=== PATIENT | male | born 1950 | race Hispanic/Latino ===

== ENCOUNTER 2019-10-19 22:09 | Inpatient (IN) | payer MEDICARE, OTHER ==
[~2019-10-19] VITALS: Ht 165.1 cm; Wt 71.7 kg
[~2019-10-19 22:09] MED LIST: ETOMIDATE 2 MG/ML 10 ML VIAL IVP ONE; NOREPINEPHRINE BITARTRATE 1 MG/1 ML ML IV ONE; ROCURONIUM BROMIDE 10MG/1ML 5ML VL IV ONE; SODIUM BICARB 8.4% 50ML SYRINGE IVP ONE
[2019-10-19] MEDS ORDERED: SODIUM CHLORIDE 0.9% 1000ML 1,000 ML IV ONE (22:40)
[2019-10-19 22:45] LABS: BASOPHILS % (AUTO) 0.5 % (0.0-5.0); EOSINOPHILS % (AUTO) 1.6 % (0.0-8.0); HEMATOCRIT 35.4 % (42-54); LYMPHOCYTES % (AUTO) 13.3 % (21.0-51.0); MEAN CORPUSCULAR HEMOGLOBIN 29.1 pg (27.0-33.0); MEAN CORPUSCULAR HGB CONC 32.5 g/dL (32.0-36.0); MEAN CORPUSCULAR VOLUME 89.6 fL (79-99); MONOCYTES % (AUTO) 7.2 % (3.0-13.0); NEUTROPHILS % (AUTO) 76.9 % (40.0-77.0); PLATELET COUNT (AUTO) 272 K/uL (130-400); RED BLOOD CELL COUNT(AUTO) 3.95 MIL/uL (4.50-6.20); WHITE BLOOD COUNT (AUTO) 6.3 K/uL (4.8-10.8)
[2019-10-19 22:59] LABS: CARBON DIOXIDE 23 mmol/L (21-32); CHLORIDE 99 mmol/L (101-111); CREATININE 2.1 mg/dL (0.5-1.5); GLOMERULAR FILTR. RATE CALC 33 mL/min (>60); GLUCOSE,RANDOM 130 mg/dL (70-105); POTASSIUM 4.6 mmol/L (3.5-5.1); SODIUM SERUM 135 mmol/L (136-145); UREA NITROGEN, BLOOD 39 mg/dL (7-18)
[2019-10-19 23:04] LABS: ALANINE AMINOTRANSFERASE 49 U/L (12-78); ALBUMIN 2.6 g/dL (3.5-5.0); ASPARTATE AMINOTRANSFERASE 34 U/L (10-37); BILIRUBIN,TOTAL 0.5 mg/dL (0.2-1.0); CREATINE KINASE, TOTAL 47 U/L (21-232); TOTAL PROTEIN, SERUM 7.4 g/dL (6.0-8.3)
[2019-10-19 23:14] LABS: AMMONIA < 3 umol/L (11-32)
[2019-10-19 23:38] LABS: APPEARANCE,URINE Clear (CLEAR); BILIRUBIN,URINE Negative (NEGATIVE); COLOR,URINE Yellow (YELLOW); GLUCOSE, URINE (UA) Negative (NEGATIVE); KETONES,URINE Negative (NEGATIVE); LEUKOCYTE ESTERASE ,URINE Negative (NEGATIVE); NITRATE,URINE Negative (NEGATIVE); OCCULT BLOOD,URINE Negative (NEGATIVE); PH,URINE 5.5 (5.0-8.0); PROTEIN,URINE POS 2+ mg/dL (NEGATIVE)
[2019-10-19 23:46] LABS: AMPHET/METH SCREEN,URINE NEGATIVE (NEGATIVE); BARBITURATE SCREEN, URINE NEGATIVE (NEGATIVE); BENZODIAZEPINES SCREEN,URINE NEGATIVE (NEGATIVE); CANNABINOID SCREEN,URINE NEGATIVE (NEGATIVE); COCAINE SCREEN,URINE NEGATIVE (NEGATIVE); OPIATE SCREEN,URINE NEGATIVE (NEGATIVE); PHENCYCLIDINE SCREEN,URINE NEGATIVE (NEGATIVE)
[2019-10-19 23:48] LABS: INR 0.97 (0.85-1.15); PARTIAL THROMBOPLASTIN TIME 33.3 SEC (26.3-35.5); PROTHROMBIN TIME 10.5 SEC (9.6-11.6)
[2019-10-19 23:57] LABS: BACTERIA,URINE None Seen /HPF (None Seen); RBC,URINE 0-1 /HPF (0-1); SQUAMOUS EPITHELIAL CELL,UR Rare /HPF (0-2); WBC,URINE 0-1 /HPF (0-1)
[2019-10-20] VITALS (17 sets, daily range): BP systolic 120–151; BP diastolic 69–89
[2019-10-20] MEDS ORDERED: SODIUM CHLORIDE 0.9% 1000ML 1,000 ML IV SCH (00:05)
[2019-10-20] MEDS ORDERED: DIPHENHYDRAMINE HCL 25 MG CAPSULE PO PRN (00:15)
[2019-10-20] MEDS ORDERED: NITROGLYCERIN 0.4 MG SL TAB SL PRN (00:15)
[2019-10-20 03:45] LABS: HEMATOCRIT 34.5 % (42-54); MEAN CORPUSCULAR HGB CONC 32.8 g/dL (32.0-36.0); MEAN CORPUSCULAR VOLUME 88.7 fL (79-99); PLATELET COUNT (AUTO) 273 K/uL (130-400); RED BLOOD CELL COUNT(AUTO) 3.89 MIL/uL (4.50-6.20); WHITE BLOOD COUNT (AUTO) 5.7 K/uL (4.8-10.8)
[2019-10-20 03:54] LABS: INR 0.97 (0.85-1.15); PROTHROMBIN TIME 10.5 SEC (9.6-11.6)
[2019-10-20 04:01] LABS: ALANINE AMINOTRANSFERASE 45 U/L (12-78); ALBUMIN 2.5 g/dL (3.5-5.0); ASPARTATE AMINOTRANSFERASE 28 U/L (10-37); BILIRUBIN,TOTAL 0.5 mg/dL (0.2-1.0); CARBON DIOXIDE 24 mmol/L (21-32); CHLORIDE 104 mmol/L (101-111); CREATINE KINASE, TOTAL 41 U/L (21-232); CREATININE 1.9 mg/dL (0.5-1.5); GLOMERULAR FILTR. RATE CALC 37 mL/min (>60); GLUCOSE,RANDOM 104 mg/dL (70-105); MYOGLOBIN 65 ng/mL (10-92); POTASSIUM 3.9 mmol/L (3.5-5.1); SODIUM SERUM 140 mmol/L (136-145); TOTAL PROTEIN, SERUM 7.2 g/dL (6.0-8.3); TROPONIN I < 0.04 ng/mL (0.00-0.06); UREA NITROGEN, BLOOD 28 mg/dL (7-18)
[2019-10-20 04:16] LABS: BAND NEUTROPHILS % (MANUAL) 2 % (0-2); LYMPHOCYTES % (MANUAL) 11 % (22-44); MAN.DIFF COMMENT-IMPRESSION MANUAL DIFFERENTIAL; MONOCYTES % (MANUAL) 8 % (2-9); PLATELET MORPHOLOGY COMMENT ADEQUATE; REACTIVE LYMPHOCYTES 1 % (0-0); SEGMENTED NEUTROPHILS % 78 % (40-70)
[2019-10-20] MEDS: FAMOTIDINE/PF 20 MG/2 ML VIAL IV SCH (09:00)
[2019-10-20] MEDS ORDERED: GADODIAMIDE 10 MMOL/20 ML VIAL IV ONE (09:56)
[2019-10-20] MEDS ORDERED: LEVETIRACETAM 500 MG TABLET PO ONE (12:23)
[2019-10-20] MEDS ORDERED: LACTATED RINGERS 1000ML 1,000 ML IV ONE (12:23)
--- NOTE | 2019-10-20 13:15 | NUR ---
PT ARRIVES FROM ER. HE HAS EXPRESSIVE APHASIA-HE CAN SPEAK 1-2 WORDS CLEARLY IN BRAZILIAN AND WITH CUEING. HE CANNOT SAY HIS NAME ,HE DID TELL ME HIS LAST NAME. HE CANNOT TELL ME HIS BIRTHDAY. HAS NO LIMB WEAKNESS/DRIFT. I NOTED SOME ATAXIA TO HIS RT ARM AND HAND. NO FACIAL DROOP OR DROOLING. PUPILS EQUAL AND REACTIVE. I RECIEVED REPORT FROM ER STAFF THAT DR LAND HAS BEEN NOTIFIED WITH MRI RESULTS. I REVIEWED DR LAND NOTES AND ORDERS. THANK YOU
[2019-10-20] MEDS ORDERED: DEXAMETHASONE SOD PHOSPHATE 4 MG/ML 1ML VIAL ONE (13:47)
[2019-10-20] MEDS ORDERED: SIMV40TA59 PO (13:51)
[2019-10-20] MEDS ORDERED: PANT40TA PO (13:51)
[2019-10-20] MEDS ORDERED: BICA50TA49 PO (13:51)
[2019-10-20] MEDS ORDERED: SUCR1TAB28 PO (13:51)
[2019-10-20] MEDS: DEXAMETHASONE SOD PHOSPHATE 4 MG/ML 1ML VIAL IVP SCH ×2 (14:00→20:03)
[2019-10-20] MEDS: LACTATED RINGERS 1000ML 1,000 ML IV SCH ×2 (14:39→20:01)
--- NOTE | 2019-10-20 16:17 | NUR ---
NO ACUTE CHANGES. WAKES EASILY AND FOLLOWS COMMANDS. DAUGHTER AT BEDSIDE. INFORMED OF PLAN OF CARE.
--- NOTE | 2019-10-20 17:15 | NUR ---
DR LOVE MADE ROUNDS- EXAMINED PT. INFORMED OF DR LAND NOTES AND RECOMMENDATIONS. NO NEW ORDERS
--- NOTE | 2019-10-20 17:21 | NUR ---
cm note met with patient but unable to speak, spouse present in room and states resides at home with spouse, independent with adls and ambulation until last few weeks got weaker and c/o BOLANOS. pt and spouse were visiting family in this area. they [place] in [facility] [place] [facility]. and pt became ill. [facility] dc plan is back to home when stable. open to rehab as necessary, but prefer to go back to their hometown. states they spoke to md regarding transfer. but md felt not stable for transfer at this time. states curently staying at local hotel. provided spouse with information on local hotels that are availalbe weekly. [facility] will followup. Addendum: 10/20/19 at 1726 by DOM MESSINA Amended: Links added.
--- NOTE | 2019-10-20 19:16 | NUR ---
HAND OFF REPORT GIVEN TO SANDRA JOHN
[2019-10-21] VITALS (24 sets, daily range): BP systolic 120–155; BP diastolic 67–96
[2019-10-21] MEDS: DEXAMETHASONE SOD PHOSPHATE 4 MG/ML 1ML VIAL IVP SCH ×4 (02:22→21:00)
[2019-10-21 03:54] LABS: BASOPHILS % (AUTO) 0.2 % (0.0-5.0); HEMATOCRIT 32.2 % (42-54); LYMPHOCYTES % (AUTO) 8.1 % (21.0-51.0); MEAN CORPUSCULAR HEMOGLOBIN 29.1 pg (27.0-33.0); MEAN CORPUSCULAR HGB CONC 33.2 g/dL (32.0-36.0); MEAN CORPUSCULAR VOLUME 87.5 fL (79-99); MONOCYTES % (AUTO) 3.9 % (3.0-13.0); NEUTROPHILS % (AUTO) 87.5 % (40.0-77.0); PLATELET COUNT (AUTO) 281 K/uL (130-400); RED BLOOD CELL COUNT(AUTO) 3.68 MIL/uL (4.50-6.20); RED CELL DISTRIBUTION WIDTH 11.8 % (11.0-15.5); WHITE BLOOD COUNT (AUTO) 6.2 K/uL (4.8-10.8)
[2019-10-21 04:41] LABS: ALBUMIN 2.2 g/dL (3.5-5.0); BILIRUBIN,TOTAL 0.4 mg/dL (0.2-1.0); CREATININE 1.7 mg/dL (0.5-1.5); POTASSIUM 4.4 mmol/L (3.5-5.1); TOTAL PROTEIN, SERUM 6.8 g/dL (6.0-8.3)
--- NOTE | 2019-10-21 07:10 | NUR ---
REPORT GIVEN TO ALVARO DIAMOND
[2019-10-21] MEDS: LEVETIRACETAM 500 MG TABLET PO SCH (09:28)
[2019-10-21] MEDS: FAMOTIDINE/PF 20 MG/2 ML VIAL IV SCH (09:28)
[2019-10-21] MEDS: LACTATED RINGERS 1000ML 1,000 ML IV SCH (14:50)
[2019-10-22] VITALS (34 sets, daily range): BP systolic 120–158; BP diastolic 71–113
[2019-10-22] MEDS: LACTATED RINGERS 1000ML 1,000 ML IV SCH (01:45)
[2019-10-22] MEDS: DEXAMETHASONE SOD PHOSPHATE 4 MG/ML 1ML VIAL IVP SCH ×4 (01:50→20:18)
[2019-10-22 04:27] LABS: BASOPHILS % (AUTO) 0.1 % (0.0-5.0); LYMPHOCYTES % (AUTO) 5.3 % (21.0-51.0); MEAN CORPUSCULAR HEMOGLOBIN 28.9 pg (27.0-33.0); MEAN CORPUSCULAR HGB CONC 32.9 g/dL (32.0-36.0); MEAN CORPUSCULAR VOLUME 87.9 fL (79-99); MONOCYTES % (AUTO) 4.3 % (3.0-13.0); NEUTROPHILS % (AUTO) 89.8 % (40.0-77.0); PLATELET COUNT (AUTO) 299 K/uL (130-400); RED BLOOD CELL COUNT(AUTO) 3.87 MIL/uL (4.50-6.20); RED CELL DISTRIBUTION WIDTH 11.9 % (11.0-15.5); WHITE BLOOD COUNT (AUTO) 9.1 K/uL (4.8-10.8)
[2019-10-22 04:54] LABS: ALBUMIN 2.2 g/dL (3.5-5.0); BILIRUBIN,TOTAL 0.3 mg/dL (0.2-1.0); CREATININE 1.6 mg/dL (0.5-1.5); POTASSIUM 4.2 mmol/L (3.5-5.1); TOTAL PROTEIN, SERUM 6.7 g/dL (6.0-8.3)
[2019-10-22] MEDS: FAMOTIDINE/PF 20 MG/2 ML VIAL IV SCH (08:51)
[2019-10-22] MEDS: LEVETIRACETAM 500 MG TABLET PO SCH (08:51)
--- NOTE | 2019-10-22 10:00 | NUR ---
DYSPHAGIA EVAL COMPLETED. -S/S OF ASPIRATION. RECOMMEND MECHANICAL SOFT, THIN LIQUIDS; PILLS WHOLE WITH LIQUIDS. Addendum: 10/22/19 at 1207 by NANCY SHIRLEY, [facility] Amended: Links added.
--- NOTE | 2019-10-22 10:15 | NUR ---
COGNITIVE-LINGUISTIC EVAL COMPLETE. Pt WITH MODERATE RECEPTIVE AND SEVERE EXPRESSIVE APHASIA. Pt FOLLOWED 1-STEP COMMANDS WITH 50% ACCURACY. Pt DID NOT REPEAT WORDS OR VERBALIZE DURING THE EVALUATION. Pt DID NOT STATE NAME. Pt RESPONDED TO NAME BY TURNING TO SPEAKER. Pt DID NOT ANSWER YES/NO QUESTIONS. Pt DID NOT COMPLETE CONFRONTATIONAL NAMING. Pt DID NOT IMITATE WORDS. Pt Pt DID NOT IDENTIFY COMMON OBJECTS FROM A FIELD OF TWO. Pt REQUIRED MAX VERBAL AND VISUAL CUES TO FOLLOW COMMANDS AND PARTICIPATE IN ACTIVITIES. COGNITIVE ABILITY AND ARTICULATION TO BE ADDRESSED AT ANOTHER TIME SECONDARY TO UNABLE TO EVALUATE AT THIS TIME TIME DUE TO POOR EXPRESSIVE AND RECEPTIVE LANGUAGE ABILITIES. RECOMMENDATIONS: 1. SKILLED SPEECH THERAPY 3-5XWK TARGETING EXPRESSIVE LANGUAGE SKILLS. LTG#1: Pt WILL INCREASE EXPRESSIVE LANGUAGE SKILLS TO EXPRESS WANTS AND NEEDS WITH MIN ASSISTANCE. LTG#2: Pt WILL INCREASE RECEPTIVE LANGUAGE SKILLS TO PARTICIPATE IN ADLs WITH MIN ASSISTANCE. STG#1: Pt WILL REPEAT COMMON WORDS WITH 70% ACCURACY. STG#2: Pt WILL ANSWER YES/NO QUESTIONS WITH 80% ACCURACY USING GESTURES OR VERBAL OUTPUT. STG#3: Pt WILL FOLLOW 1-STEP COMMANDS WITH 80% ACCURACY INDEPENDENTLY. STG#4: Pt WILL IDENTIFY COMMON OBJECTS FROM A FIELD OF 2 WITH 80% ACCURACY. STG#5: Pt WILL LABEL COMMON OBJECTS WITH 80% ACCURACY WITH 80% ACCURACY. STG#6: SKILLED EDUCATION Pt/FAMILY/STAFF. SPOKEN LANGUAGE EXPRESSION: [id number] Addendum: 10/22/19 at [address] Amended: Links added.
--- NOTE | 2019-10-22 10:45 | NUR ---
DR. LEXIE OWEN AT BEDSIDE AT THIS TIME TO SPEAK TO FAMILY. HE UPDATED THEM ON PATIENT'S CURRENT STATUS AND LAST IMAGING RESULTS. HE REQUESTED THAT [facility] BE CALLED TO EVALUATE PATIENT.
--- NOTE | 2019-10-22 11:00 | NUR ---
DR. ANDRES CAMPOS NOTIFIED VIA TELEPHONE AT THIS TIME ABOUT PATIENT AND CURRENT CONDITION. HE SAID HE WILL BE BY LATER TO SEE AND ASSESS THE PATIENT.
[2019-10-22] MEDS: RANITIDINE HCL 15 MG/1 ML PO SCH (11:12)
--- NOTE | 2019-10-22 12:30 | NUR ---
DR. ANDRES CAMPOS CAME TO SEE AND ASSESS PATIENT AT THIS TIME. PATIENT'S SON AND DAUGHTER AT BEDSIDE. DR. CAMPOS ORDERED CT OF CHEST, ABDOMEN AND PELVIS WITH AND WITHOUT CONTRAST. HE ALSO REQUESTED DR. LAND TO SEE AND EVALUATE PATIENT. HE WAS MADE AWARE THAT DR. LAND HAS MADE AN APPOINTMENT WITH FAMILY AT 2PM.
--- NOTE | 2019-10-22 13:30 | NUR ---
DR. LAND AT BEDSIDE DR. LAND AT BEDSIDE TO SEE PATIENT AND SPEAK WITH FAMILY. PATIENT'S 3 DAUGHTERS AND 1 SON AT BEDSIDE AT THIS TIME. DR. LAND NOTIFIED THEM OF THE SEVERITY OF HIS CASE. HE EXPLAINED IN DETAIL ABOUT THE OPTIONS THE FAMILY HAS FOR THEIR FATHER. FAMILY VERBALIZED UNDERSTANDING OF THE OPTIONS AND STATED THEY WILL BE DISCUSSING IT ALTOGETHER. Addendum: 10/22/19 at 1847 by WANDA AVELAR RN NO FINAL DECISION HAS BEEN MADE BY FAMILY AT THIS TIME.
[2019-10-22] MEDS ORDERED: DIATR MEGLU/DIATRIZOATE SODIUM 30 ML BOTTLE ONE (14:22)
--- NOTE | 2019-10-22 14:50 | NUR ---
CT SCAN PER DR. SAMSON, CHANGE CT SCAN TO WITHOUT CONTRAST, BECAUSE OF CREATINE LEVELS.
--- NOTE | 2019-10-22 14:56 | NUR ---
RD NOTIFICATION - Pt with very poor appetite Pt admitted for subdural hematoma. Brain mass as per EMR, pending neurosurgical consult. Pt with aphasia. Recommend appetite stimulant secondary to Pt oral intake not meeting calculated nutritional needs. Also recommend Ensure TID with meals. RD to continue to monitor. Please notify RD as additional nutrition concerns arise. Thank you. Addendum: 10/22/19 at [address] Amended: Links added.
[2019-10-22] MEDS: ACETAMINOPHEN 325 MG TAB PO PRN ×2 (16:36→20:45)
[2019-10-23] VITALS (33 sets, daily range): BP systolic 127–168; BP diastolic 70–100
[2019-10-23 03:00] LABS: HEMATOCRIT 33.6 % (42-54); LYMPHOCYTES % (AUTO) 7.1 % (21.0-51.0); MEAN CORPUSCULAR VOLUME 87.7 fL (79-99); MONOCYTES % (AUTO) 4.8 % (3.0-13.0); NEUTROPHILS % (AUTO) 87.7 % (40.0-77.0); PLATELET COUNT (AUTO) 308 K/uL (130-400); RED BLOOD CELL COUNT(AUTO) 3.83 MIL/uL (4.50-6.20); WHITE BLOOD COUNT (AUTO) 7.6 K/uL (4.8-10.8)
[2019-10-23 03:19] LABS: ALBUMIN 2.2 g/dL (3.5-5.0); BILIRUBIN,TOTAL 0.3 mg/dL (0.2-1.0); CREATININE 1.8 mg/dL (0.5-1.5); POTASSIUM 4.3 mmol/L (3.5-5.1); TOTAL PROTEIN, SERUM 6.5 g/dL (6.0-8.3)
[2019-10-23] MEDS: DEXAMETHASONE SOD PHOSPHATE 4 MG/ML 1ML VIAL IVP SCH ×4 (05:13→20:23)
[2019-10-23] MEDS: RANITIDINE HCL 15 MG/1 ML PO SCH (08:43)
[2019-10-23] MEDS: LEVETIRACETAM 500 MG TABLET PO SCH (08:43)
--- NOTE | 2019-10-23 11:30 | NUR ---
SPEECH THERAPY COMPLETED. S: Pt IN BED AT THE TIME OF THE SESSION. SON AT BEDSIDE. Pt COOPERATIVE, SMILING (NON-VERBAL). O: Pt CURRENTLY TARGETING RECEPTIVE AND EXPRESSIVE LANGUAGE SKILLS. RESULTS ARE FOLLOWS: STG#1: Pt WILL REPEAT COMMON WORDS WITH 70% ACCURACY: 0% ACCURACY STG#2: Pt WILL ANSWER YES/NO QUESTIONS WITH 80% ACCURACY USING GESTURES OR VERBAL OUTPUT: GESTURE 20% (HAND SQUEEZING), VERBAL: 0% STG#3: Pt WILL FOLLOW 1-STEP COMMANDS WITH 80% ACCURACY INDEPENDENTLY: 60% ACCURACY WITH MAX CUES STG#4: Pt WILL IDENTIFY COMMON OBJECTS FROM A FIELD OF 2 WITH 80% ACCURACY: 50% ACCURACY WITH TANGIBLE OBJECTS STG#5: Pt WILL LABEL COMMON OBJECTS WITH 80% ACCURACY WITH 80% ACCURACY: 0% ACCURACY STG#6: SKILLED EDUCATION Pt/FAMILY/STAFF: COMPLETED. A: Pt PRESENTS WITH ATAXIA DURING 1-STEP COMMANDS OF ORAL MOVEMENTS AND FINE MOTOR SKILLS. Pt ABLE TO IDENTIFY COMMON OBJECTS. 1 ATTEMPT FOR VERBAL OUTPUT NOTED WITH NO TRUE WORDS EXPRESSED. Pt WITH IMPROVED RESPONSE TO TANGIBLE OBJECTS VS PICTURES. Pt USING HAND SQUEEZING TO ANSWER YES/NO QUESTIONS. P: RECOMMEND CONTINUED SKILLED SPEECH THERAPY TARGETING RECEPTIVE AND EXPRESSIVE LANGUAGE 3-5XWK WEEK. NUCLEAR STATION OPERATOR WILL CONTINUE TO FOLLOW Pt. NUCLEAR STATION OPERATOR COORDINATED CARE WITH NURSE WANDA. Addendum: 10/23/19 at 1351 by BRENNAN KILPATRICK Amended: Links added.
[2019-10-23] MEDS ORDERED: LEVE-43 PO (13:14)
[2019-10-23] MEDS ORDERED: DEXA2TAB PO (13:14)
--- NOTE | 2019-10-23 14:15 | NUR ---
RECTAL BLEED EDMUND WALKER NOTIFIED OF PATIENT'S RECURRING BLOODY STOOLS. SHE WAS INFORMED OF HGB AND HCT LEVELS OF PREVIOUS DAYS AND SAID IT WOULD BE FINE TO CONTINUE WITH DISCHARGE, SO LONG FAMILY IS AWARE TO FIND GI DOCTOR.
--- NOTE | 2019-10-23 15:45 | NUR ---
CANCEL DISCHARGE DR. Whelan AND EDMUND TOBACCO PREVENTION HEALTH EDUCATOR NOTIFIED THAT PATIENT'S SPOUSE IS NOW REQUESTING TO PROCEED WITH CARE HERE INSTEAD OF BEING DISCHARGED TO CONTINUE CARE IN [place]. DR. Whelan AND EDMUND TOBACCO PREVENTION HEALTH EDUCATOR AT BEDSIDE TO SPEAK WITH PATIENT'S AND SON, SHORTY. THEY AGREED TO STAY HERE AND PROCEED WITH CARE TO PREVENT DELAY OF CARE. DR. Whelan REQUESTED THAT DR. LAND BE NOTIFIED OF THE RECONSULT. RUPAL RN (DR. LAND'S NURSE), WAS NOTIFIED AT 1600 OF THE SITUATION. PENDING RESPONSE. PATIENT WILL REMAIN IN ICU AT THIS TIME. DISCHARGE CANCELLED.
--- NOTE | 2019-10-23 16:40 | NUR ---
GI CONSULT SPOKE TO LAWRENCE FORM DR. MAN OFFICE AT THIS TIME. SHE STATED SHE WILL LET DR. MAN KNOW ABOUT CONSULTATION.
--- NOTE | 2019-10-23 17:45 | NUR ---
GI CONSULT SPOKE TO DR. MAN AT THIS TIME. HE STATED TO CONTINUE TO MONITOR PATIENT'S BOWEL MOVEMENTS AT THIS TIME. SINCE PATIENT IS STABLE, HE RECOMMENDS TO CONTINUE WITH PLAN FOR CRANIOTOMY. HE STATES IF PATIENT BECOMES UNSTABLE BECAUSE OF GI BLEED, TO NOTIFY HIM IMMEDIATELY. OTHERWISE, CONTINUE WITH PLAN FOR CRANIOTOMY.
--- NOTE | 2019-10-23 18:15 | NUR ---
MEETING WITH DR. LAND TOMORROW. FAMILY WAS INFORMED TO BE HERE AT 10 AM TOMORROW MORNING FOR MEETING WITH DR. LAND.
[2019-10-24] VITALS (24 sets, daily range): BP systolic 119–175; BP diastolic 45–101
[2019-10-24] MEDS: DEXAMETHASONE SOD PHOSPHATE 4 MG/ML 1ML VIAL IVP SCH ×4 (02:44→21:18)
[2019-10-24] MEDS: LEVETIRACETAM 500 MG TABLET PO SCH (08:07)
[2019-10-24] MEDS: RANITIDINE HCL 15 MG/1 ML PO SCH (08:07)
--- NOTE | 2019-10-24 10:45 | NUR ---
DR. LAND AT BEDSIDE DR. LAND AT BEDSIDE TO SPEAK WITH FAMILY ABOUT PLAN OF SURGERY. PATIENT'S , SON, AND TWO DAUGHTERS ARE AT BEDSIDE. ALL QUESTIONS FROM FAMILY WERE DISCUSSED AND EXPLAINED BY DR. LAND. FAMILY VERBALIZED UNDERSTANDING OF RISKS OF SURGERY. SURGERY PLANNED FOR TOMORROW MORNING. PENDING TO SCHEDULE WITH OR.
[2019-10-24] MEDS ORDERED: CEFAZOLIN SODIUM 1 GM VIAL IVP PRN (11:30)
--- NOTE | 2019-10-24 11:32 | NUR ---
PA PLAN VISITED WITH PATIENT AND FAMILY. FAMILY HAD BEEN TALKING ABOUT TAKING PATIENT UP [place]. SPOKE TO DR. SAMSON SAID OKAY TO PA PATIENT. HE HAD BEEN HAVING ISSUES SINCE JUN. SPOKE TO CHANCE WALKER SAID OKAY TO PA. WENT TO TALK TO FAMILY. SAID THEY WERE TOLD BY NURSING STAFF THAT PATIENT HAD BEEN ACCEPTED TO [facility]. NO ORDER FOR TRANSFER HAD BEEN GIVEN ASKED WHO SAID A NURSE DID NOT KNOW WHO. EXPLAINED THAT NO PATIENT WAS BEING DISCHARGED HOME TO FOLLOW UP WITH [facility] IN [place] SINCE THEY HAD SAID THEY WANTED PATIENT TO GO HOME. AT THIS POINT THEY ASKED IF EMS HAD BEEN SET UP. EXPLAINED THAT MD HAD CLEARED PATIENT TO TRAVEL VIA PRIVATE VEHICLE. THEY FELT UNSAFE BECAUSE PATIENT COULD HAVE A BREAKTHROUGH SEIZURE. EXPLAINED THAT INSURANCE WOULD NOT PAY FOR EMS TO [place]. SAID TO TRY UNDER HOSPICE. AFTER 3 HOURS BEING MOVED AROUND IN [facility] SPOKE TO 8 DIFFERENT PEOPLE INCLUDING EN WHO HAD BEEN ASSIGNED TO THE CASE. [facility] CALLED BACK SAID THAT INSURANCE WILL NOT COVER. PRIVATE [employer] IS [phone] DOLLARS. FAMILY CHANGED MIND NOW WANT THE SURGERY. LET DR. LOVE KNOW. NURSE AWARE. Addendum: 10/24/19 at 1141 by YANA CHU RN CM Amended: Links added.
[2019-10-24] MEDS: ACETAMINOPHEN 325 MG TAB PO PRN (12:45)
[2019-10-24] MEDS: ONDANSETRON HCL 4 MG/2 ML VIAL IV PRN (12:52)
[2019-10-24] MEDS ORDERED: ATOR40TA69 PO (13:15)
[2019-10-24] MEDS ORDERED: AMLO-258 PO (13:15)
[2019-10-24] MEDS ORDERED: TAMS-1 PO (13:15)
--- NOTE | 2019-10-24 15:05 | NUR ---
HOME MEDS EDMUND WLAKER, NOTIFIED THAT PATIENT'S HOME MEDS HAVE BEEN ENTERED AND ARE PENDING TO BE RESTARTED. ALSO, ORDER FOR STAT CBC AND CMP OBTAINED.
[2019-10-24 16:56] LABS: HEMATOCRIT 37.3 % (42-54); MEAN CORPUSCULAR HEMOGLOBIN 28.6 pg (27.0-33.0); MEAN CORPUSCULAR HGB CONC 32.7 g/dL (32.0-36.0); MEAN CORPUSCULAR VOLUME 87.4 fL (79-99); PLATELET COUNT (AUTO) 357 K/uL (130-400); RED BLOOD CELL COUNT(AUTO) 4.27 MIL/uL (4.50-6.20); RED CELL DISTRIBUTION WIDTH 11.9 % (11.0-15.5); WHITE BLOOD COUNT (AUTO) 7.6 K/uL (4.8-10.8)
[2019-10-24] MEDS: SUCRALFATE 1 GM TABLET PO SCH ×2 (17:03→21:18)
[2019-10-24 17:12] LABS: CREATININE 1.6 mg/dL (0.5-1.5); POTASSIUM 4.3 mmol/L (3.5-5.1)
[2019-10-24] MEDS: ATORVASTATIN CALCIUM 40 MG TABLET PO SCH (21:18)
[2019-10-25] VITALS (43 sets, daily range): BP systolic 105–192; BP diastolic 56–116
[2019-10-25] MEDS: DEXAMETHASONE SOD PHOSPHATE 4 MG/ML 1ML VIAL IVP SCH ×4 (02:05→22:51)
[2019-10-25 03:54] LABS: BASOPHILS % (AUTO) 0.1 % (0.0-5.0); HEMATOCRIT 33.9 % (42-54); MEAN CORPUSCULAR HEMOGLOBIN 29.3 pg (27.0-33.0); MEAN CORPUSCULAR HGB CONC 33.6 g/dL (32.0-36.0); MEAN CORPUSCULAR VOLUME 87.1 fL (79-99); MONOCYTES % (AUTO) 6.6 % (3.0-13.0); NEUTROPHILS % (AUTO) 83.4 % (40.0-77.0); PLATELET COUNT (AUTO) 328 K/uL (130-400); RED BLOOD CELL COUNT(AUTO) 3.89 MIL/uL (4.50-6.20); RED CELL DISTRIBUTION WIDTH 11.9 % (11.0-15.5); WHITE BLOOD COUNT (AUTO) 7.5 K/uL (4.8-10.8)
[2019-10-25 04:05] LABS: INR 1.03 (0.85-1.15); PARTIAL THROMBOPLASTIN TIME 27.6 SEC (26.3-35.5); PROTHROMBIN TIME 11.1 SEC (9.6-11.6)
[2019-10-25 04:15] LABS: ALBUMIN 2.1 g/dL (3.5-5.0); BILIRUBIN,TOTAL 0.3 mg/dL (0.2-1.0); CREATININE 1.8 mg/dL (0.5-1.5); MAGNESIUM 2.1 mg/dL (1.80-2.40); POTASSIUM 4.3 mmol/L (3.5-5.1); TOTAL PROTEIN, SERUM 6.4 g/dL (6.0-8.3)
--- NOTE | 2019-10-25 07:45 | NUR ---
pt is npo, ready for surgery, ekg done, cxr ordered by dr west will be done in surgery holding as per SURGERY staff
[2019-10-25] MEDS ORDERED: LACTATED RINGERS 1000ML 1,000 ML IV ONE (07:58)
[2019-10-25] MEDS ORDERED: ROCURONIUM 10MG/1ML SYR 10 MG/ML ML ONE ×2 (08:01→09:51)
[2019-10-25] MEDS ORDERED: PROPOFOL 10 MG/ML 20ML VIAL IV ONE (08:01)
[2019-10-25] MEDS ORDERED: LIDOCAINE PF 2% 5ML ABBOJECT ONE (08:01)
[2019-10-25] MEDS ORDERED: MIDAZOLAM HCL 1 MG/ML 2ML VIAL ONE (08:01)
[2019-10-25] MEDS ORDERED: FENTANYL CITRATE PF 50 MCG/1 ML 5ML AMP IV ONE (08:04)
[2019-10-25] MEDS ORDERED: THROMBIN-JMI 20000 UNIT KIT TP ONE (08:25)
[2019-10-25] MEDS ORDERED: BUPIVACAINE/EPI/PF 0.25% 30ML VIAL IJ ONE (08:25)
[2019-10-25] MEDS ORDERED: DEXAMETHASONE SOD PHOSPHATE 10MG/ML 1ML VIAL ONE (08:29)
[2019-10-25] MEDS ORDERED: ONDANSETRON HCL 4 MG/2 ML VIAL ONE (08:29)
[2019-10-25] MEDS ORDERED: NEOSTIGMINE 5MG/5ML SYR IV ONE (08:31)
[2019-10-25] MEDS ORDERED: GLYCOPYRROLATE 1 MG/5 ML SYRINGE ONE (08:31)
[2019-10-25] MEDS ORDERED: MANNITOL 20% 500ML BAG 500 ML IV ONE (08:32)
[2019-10-25] MEDS ORDERED: EPHEDRINE SULFATE 50 MG/ML AMPULE ONE (08:50)
[2019-10-25] MEDS: SUCRALFATE 1 GM TABLET PO SCH ×3 (09:00→20:33)
[2019-10-25] MEDS: BICALUTAMIDE 50 MG PO SCH (09:00)
[2019-10-25] MEDS: TAMSULOSIN HCL 0.4 MG CAP.ER.24H PO SCH ×2 (09:00→16:09)
[2019-10-25] MEDS: CEFAZOLIN SODIUM 1 GM VIAL ONE ×2 (09:30→10:25)
[2019-10-25] MEDS ORDERED: CEFAZOLIN SODIUM 1 GM VIAL ONE (10:22)
[2019-10-25] MEDS ORDERED: NITROGLYCERIN 50 MG/D5% WATER 1 BOT ONE (10:54)
--- NOTE | 2019-10-25 13:05 | NUR ---
RECEIVED FROM OR. VS STABLE
[2019-10-25] MEDS ORDERED: NICARDIPINE HCL 50 MG in SODIUM CHLORIDE 0.9% 230 ML IV SCH (15:00)
[2019-10-25] MEDS ORDERED: NICARDIPINE HCL 25 MG/10 ML ML IV ONE (15:03)
[2019-10-25] MEDS ORDERED: MORPHINE SULFATE 2 MG/ML 1ML SYG IV PRN (15:15)
--- NOTE | 2019-10-25 15:41 | NUR ---
RD FOLLOW UP Pt s/p craniotomy. Pt with decreased appetite, altered renal function. Recommend to add 30ml Promod TID, Renal non dialysis diet modification. RD to continue to monitor renal lab values and PO intake. Please notify Rd as additional nutrition concerns arise. Thank you. Addendum: 10/25/19 at [address] RD Amended: Links added.
[2019-10-25] MEDS: LEVETIRACETAM 500 MG TABLET PO SCH (16:09)
[2019-10-25] MEDS: SODIUM CHLORIDE 0.9% 1000ML 1,000 ML IV SCH (16:09)
[2019-10-25] MEDS: RANITIDINE HCL 15 MG/1 ML PO SCH (16:23)
[2019-10-25] MEDS: AMLODIPINE BESYLATE 5 MG TAB PO SCH (16:24)
[2019-10-25] MEDS: ATORVASTATIN CALCIUM 40 MG TABLET PO SCH (20:33)
[2019-10-26] VITALS (39 sets, daily range): BP systolic 84–151; BP diastolic 64–107
[2019-10-26] MEDS: SODIUM CHLORIDE 0.9% 1000ML 1,000 ML IV SCH ×2 (03:59→17:23)
[2019-10-26] MEDS: DEXAMETHASONE SOD PHOSPHATE 4 MG/ML 1ML VIAL IVP SCH ×4 (04:16→22:19)
[2019-10-26 05:21] LABS: BASOPHILS % (AUTO) 0.2 % (0.0-5.0); HEMATOCRIT 33.5 % (42-54); LYMPHOCYTES % (AUTO) 5.8 % (21.0-51.0); MEAN CORPUSCULAR HEMOGLOBIN 29.5 pg (27.0-33.0); MEAN CORPUSCULAR HGB CONC 33.4 g/dL (32.0-36.0); MEAN CORPUSCULAR VOLUME 88.2 fL (79-99); MONOCYTES % (AUTO) 7.6 % (3.0-13.0); NEUTROPHILS % (AUTO) 84.2 % (40.0-77.0); PLATELET COUNT (AUTO) 313 K/uL (130-400); RED CELL DISTRIBUTION WIDTH 11.9 % (11.0-15.5)
[2019-10-26 05:56] LABS: CREATININE 1.5 mg/dL (0.5-1.5); PHOSPHORUS 4.6 mg/dL (2.5-4.9)
[2019-10-26] MEDS: AMLODIPINE BESYLATE 5 MG TAB PO SCH (09:00)
[2019-10-26] MEDS: BICALUTAMIDE 50 MG PO SCH (09:00)
[2019-10-26] MEDS: SUCRALFATE 1 GM TABLET PO SCH ×4 (09:14→22:19)
[2019-10-26] MEDS: LEVETIRACETAM 500 MG TABLET PO SCH (09:14)
[2019-10-26] MEDS: RANITIDINE HCL 15 MG/1 ML PO SCH (09:15)
--- NOTE | 2019-10-26 13:00 | NUR ---
DR. LAND RETURNED TO PATIENT ROOM AND REMOVED HEAD DRAIN. PATIENT TOLERATED REMOVAL OF DRAIN WELL. APPLIED PRESSURE DRESSING.
--- NOTE | 2019-10-26 14:22 | NUR ---
COGNITIVE-LINGUISTIC RE-EVALUATION COMPLETED. Pt. WITH MILD EXPRESSIVE LANGUAGE AND MILD COGNITIVE LINGUISTIC DEFICITS. Pt. PRESENTED WITH DEFICITS IN THOUGHT PROCESSING AND ORGANIZATION AT CONVERSATIONAL LEVEL. Pt. EXPRESSES BASIC INFORMATION IN SIMPLE SENTENCES AND HAS DIFFICULTY ELABORATING WHEN ASKED TO EXPLAIN. RECOMMENDATIONS: 1. SKILLED SPEECH THERAPY 3-5XWK TARGETING EXPRESSIVE LANGUAGE AND COGNITIVE LINGUISTIC SKILLS. LTG #1: Pt WILL INCREASE EXPRESSIVE LANGUAGE SKILLS TO EXPRESS WANTS AND NEEDS WITH MIN ASSISTANCE. LTG #2: Pt WILL WORK ON THOUGHT PROCESS AND ORGANIZATION SKILLS TO EXPRESS WANTS AND NEEDS INDEPENDENTLY. STG #1: Pt WILL SUSTAIN A CONVERSATION WITH CLINICIAN INCREASING LENGTH OF UTTERANCES IN SENTENCE PRODUCTION WITH MIN ASSISTANCE. STG #2: Pt WILL NARRATE PAST EVENTS WITH NO MORE THAN ONE VERBAL CUES PROVIDED IN THOUGHT PROCESSING OR ORGANIZATION. SPOKEN LANGUAGE EXPRESSION: [id number] Addendum: 10/26/[address] ELIZA RHOADES Amended: Links added.
[2019-10-26] MEDS: ATORVASTATIN CALCIUM 40 MG TABLET PO SCH (22:19)
[2019-10-26] MEDS: ACETAMINOPHEN 325 MG TAB PO PRN (23:26)
[2019-10-27] MEDS: DEXAMETHASONE SOD PHOSPHATE 4 MG/ML 1ML VIAL IVP SCH ×4 (02:51→20:23)
[2019-10-27 04:00] VITALS: BP 149/87
[2019-10-27 04:59] LABS: BASOPHILS % (AUTO) 0.1 % (0.0-5.0); HEMATOCRIT 32.3 % (42-54); LYMPHOCYTES % (AUTO) 2.5 % (21.0-51.0); MEAN CORPUSCULAR HEMOGLOBIN 28.7 pg (27.0-33.0); MEAN CORPUSCULAR HGB CONC 32.2 g/dL (32.0-36.0); MEAN CORPUSCULAR VOLUME 89.2 fL (79-99); MONOCYTES % (AUTO) 4.4 % (3.0-13.0); NEUTROPHILS % (AUTO) 92.2 % (40.0-77.0); PLATELET COUNT (AUTO) 279 K/uL (130-400); RED BLOOD CELL COUNT(AUTO) 3.62 MIL/uL (4.50-6.20); RED CELL DISTRIBUTION WIDTH 12.3 % (11.0-15.5); WHITE BLOOD COUNT (AUTO) 14.7 K/uL (4.8-10.8)
[2019-10-27 05:07] LABS: CREATININE 1.7 mg/dL (0.5-1.5)
[2019-10-27 08:00] VITALS: BP 105/78
[2019-10-27] MEDS: BICALUTAMIDE 50 MG PO SCH (09:00)
[2019-10-27] MEDS: RANITIDINE HCL 15 MG/1 ML PO SCH (09:43)
[2019-10-27] MEDS: SUCRALFATE 1 GM TABLET PO SCH ×4 (09:44→20:21)
[2019-10-27] MEDS: TAMSULOSIN HCL 0.4 MG CAP.ER.24H PO SCH (09:44)
[2019-10-27] MEDS: LEVETIRACETAM 500 MG TABLET PO SCH (09:44)
[2019-10-27] MEDS: AMLODIPINE BESYLATE 5 MG TAB PO SCH (09:44)
[2019-10-27 11:45] VITALS: BP 136/77
[2019-10-27 16:00] VITALS: BP 144/70
[2019-10-27] MEDS ORDERED: BISACODYL 10 MG SUPP.RECT RC ONE ×2 (16:15→16:16)
[2019-10-27] MEDS ORDERED: MAGNESIUM HYDROXIDE 30 ML/UDCUP ONE (16:16)
[2019-10-27] MEDS ORDERED: SODIUM CHLORIDE 0.9% 10 ML VIAL IVP PRN (16:30)
[2019-10-27] MEDS: LUBIPROSTONE 24 MCG CAP PO SCH (17:24)
[2019-10-27 19:39] VITALS: BP 145/82
[2019-10-27] MEDS: DOCUSATE SODIUM 100 MG CAP PO SCH (20:21)
[2019-10-27] MEDS: ATORVASTATIN CALCIUM 40 MG TABLET PO SCH (20:21)
[2019-10-27] MEDS: BISACODYL 5 MG TABLET.DR PO SCH (20:21)
[2019-10-28] VITALS: BP 109/67
[2019-10-28 04:00] VITALS: BP 109/50
[2019-10-28] MEDS: DEXAMETHASONE SOD PHOSPHATE 4 MG/ML 1ML VIAL IVP SCH ×3 (04:13→12:40)
[2019-10-28] MEDS: ACETAMINOPHEN 325 MG TAB PO PRN (04:14)
[2019-10-28] MEDS: ONDANSETRON HCL 4 MG/2 ML VIAL IV PRN ×2 (04:18→12:40)
--- NOTE | 2019-10-28 04:34 | NUR ---
ATTENDING PAGED ATTENDING PAGED AT THIS TIME R/T PT HAVING A LOW GRADE TEMP AND EPISODE OF EMESIS.
[2019-10-28 05:02] LABS: HEMATOCRIT 37.5 % (42-54); MEAN CORPUSCULAR HEMOGLOBIN 29.5 pg (27.0-33.0); MEAN CORPUSCULAR HGB CONC 33.1 g/dL (32.0-36.0); MEAN CORPUSCULAR VOLUME 89.1 fL (79-99); PLATELET COUNT (AUTO) 320 K/uL (130-400); RED BLOOD CELL COUNT(AUTO) 4.21 MIL/uL (4.50-6.20); RED CELL DISTRIBUTION WIDTH 12.7 % (11.0-15.5); WHITE BLOOD COUNT (AUTO) 9.4 K/uL (4.8-10.8)
[2019-10-28 05:13] LABS: BILIRUBIN,URINE Negative (NEGATIVE); COLOR,URINE Yellow (YELLOW); GLUCOSE, URINE (UA) Negative (NEGATIVE); KETONES,URINE Negative (NEGATIVE); LEUKOCYTE ESTERASE ,URINE Negative (NEGATIVE); NITRATE,URINE Negative (NEGATIVE); OCCULT BLOOD,URINE Moderate (NEGATIVE); PROTEIN,URINE >=1000 mg/dL (NEGATIVE)
[2019-10-28 05:21] LABS: BAND NEUTROPHILS % (MANUAL) 23 % (0-2); LYMPHOCYTES % (MANUAL) 8 % (22-44); MAN.DIFF COMMENT-IMPRESSION MANUAL DIFFERENTIAL; PLATELET MORPHOLOGY COMMENT ADEQUATE; SEGMENTED NEUTROPHILS % 69 % (40-70)
[2019-10-28 05:24] LABS: ALBUMIN 1.8 g/dL (3.5-5.0); BILIRUBIN,TOTAL 0.5 mg/dL (0.2-1.0); CREATININE 2.1 mg/dL (0.5-1.5); POTASSIUM 4.2 mmol/L (3.5-5.1); TOTAL PROTEIN, SERUM 6.3 g/dL (6.0-8.3)
[2019-10-28 05:28] LABS: APPEARANCE,URINE CLOUDY (CLEAR)
[2019-10-28 05:30] LABS: BACTERIA,URINE Few /HPF (None Seen)
[2019-10-28 05:31] LABS: AMORPHOUS SEDIMENT,UR Moderate /LPF (None Seen); MUCUS,URINE Moderate LPF (None Seen); SQUAMOUS EPITHELIAL CELL,UR Moderate /HPF (0-2)
[2019-10-28 08:00] VITALS: BP 98/75
[2019-10-28] MEDS: BICALUTAMIDE 50 MG PO SCH (09:00)
[2019-10-28] MEDS: LUBIPROSTONE 24 MCG CAP PO SCH ×2 (09:03→16:32)
[2019-10-28] MEDS: AMLODIPINE BESYLATE 5 MG TAB PO SCH (09:03)
[2019-10-28] MEDS: RANITIDINE HCL 15 MG/1 ML PO SCH (09:03)
[2019-10-28] MEDS: DOCUSATE SODIUM 100 MG CAP PO SCH (09:03)
[2019-10-28] MEDS: MAGNESIUM HYDROXIDE 30 ML/UDCUP PO SCH (09:03)
[2019-10-28] MEDS: BISACODYL 5 MG TABLET.DR PO SCH ×2 (09:03→21:00)
[2019-10-28] MEDS: TAMSULOSIN HCL 0.4 MG CAP.ER.24H PO SCH (09:03)
[2019-10-28] MEDS: LEVETIRACETAM 500 MG TABLET PO SCH (09:03)
[2019-10-28] MEDS: SUCRALFATE 1 GM TABLET PO SCH ×4 (09:04→21:00)
--- NOTE | 2019-10-28 11:14 | NUR ---
discussed plan of care with RN, PATIENT WILL NEED AFTERCARE PER RN OBSERVATIONS- HAS LINGUISTIC DELAYS, , ALSO HAS COGNITIVE DEFICITS RE: FUNCTIONAL USE OF OBJECTS, AND HAS SOME MOBILITY DEFICITS WITH BALANCE/ STRENGTH. DISCUSSED WITH RN, WILL BRING UP TO MD WHEN ROUNDING. POSSIBLE REFERRAL TO INPATIENT REHAB IF NEEDS ALL THREE MODALITIES PT/OT/SPEECH. WILL AWAIT MD RECOMMENDATIONS Addendum: 10/28/19 at 1118 by YAKOV PEREZ RN CM Amended: Links added.
[2019-10-28 11:25] VITALS: BP 112/71
[2019-10-28] MEDS ORDERED: BISACODYL 10 MG SUPP.RECT RC SCH (13:00)
[2019-10-28] MEDS: SENNOSIDES 8.6 MG TABLET PO SCH ×2 (14:31→21:00)
[2019-10-28] MEDS: SODIUM CHLORIDE 0.9% 1000ML 1,000 ML IV SCH ×5 (14:32→20:30)
[2019-10-28 16:37] VITALS: BP 106/65
--- NOTE | 2019-10-28 19:58 | NUR ---
ATTENDING PAGED ATTENDING PAGED AT THIS TIME TO REPORT PT HR OF 132. PT STATES TO FEEL, " OK." PT IS IN BED RESTING
--- NOTE | 2019-10-28 20:15 | NUR ---
ATTENDING CONTACTED AND INFORMED REGARDING PT CHANGE IN MOOD. ATTENDING ALSO NOTIFIED REGARDING ELEVATED HR AND ADDITIONAL VS. WILL CONTINUE TO MONITOR AND FOLLOW UP ON CT HEAD RESULTS.
[2019-10-28 20:16] VITALS: BP 109/71
[2019-10-28] MEDS: ATORVASTATIN CALCIUM 40 MG TABLET PO SCH (21:00)
--- NOTE | 2019-10-28 22:45 | NUR ---
SOAPSUDS ENEMA DONE AT THIS TIME PER MD ORDER. NO STOOL PRODUCED. PT ABDOMEN IS DISTENDED, MD AWARE.
--- NOTE | 2019-10-28 23:15 | NUR ---
ATTENDING PAGED AT THIS TIME TO REPORT CHANGE IN PATIENT STATUS. PT IS NO LONGER ANSWERING TO SIMPLE COMMAND AND JUST STARES WHEN ASKED A QUESTION. RIGHT DEMONSTRATES NOT STRENGTH TO RIGHT UPPER AND LOWER EXTREMITY.
[2019-10-28 23:47] LABS: BASOPHILS % (AUTO) 0.6 % (0.0-5.0); EOSINOPHILS % (AUTO) 0.4 % (0.0-8.0); MEAN CORPUSCULAR HEMOGLOBIN 29.2 pg (27.0-33.0); MEAN CORPUSCULAR HGB CONC 33.1 g/dL (32.0-36.0); MEAN CORPUSCULAR VOLUME 88.2 fL (79-99); NEUTROPHILS % (AUTO) 92.5 % (40.0-77.0); NUCLEATED RED BLOOD CELLS 0.4 % (0.0-0.19); PLATELET COUNT (AUTO) 323 K/uL (130-400); RED BLOOD CELL COUNT(AUTO) 4.42 MIL/uL (4.50-6.20); RED CELL DISTRIBUTION WIDTH 13.3 % (11.0-15.5); WHITE BLOOD COUNT (AUTO) 7.9 K/uL (4.8-10.8)
[2019-10-29] VITALS (67 sets, daily range): BP systolic 78–146; BP diastolic 26–92
[2019-10-29 00:33] LABS: ALBUMIN 1.4 g/dL (3.5-5.0); BILIRUBIN,TOTAL 0.4 mg/dL (0.2-1.0); CREATININE 4.2 mg/dL (0.5-1.5); POTASSIUM 4.9 mmol/L (3.5-5.1); TROPONIN I 0.04 ng/mL (0.00-0.06)
--- NOTE | 2019-10-29 01:06 | NUR ---
REPORT GIVEN TO ICU NURSE AT THIS TIME
--- NOTE | 2019-10-29 01:16 | NUR ---
UPDATED REGARDING PT GOING TO ICU AT THIS TIME
--- NOTE | 2019-10-29 01:30 | NUR ---
RECEIVED BY BED FROM 4TH FLOOR. MOVED TO ICU BED AND PLACED ON JERKER, NIBP, PULSE OXIMETER. AWAKE. NOT FOLLOWING COMMANDS. INCISION TO SCALP NOTED TO BE INTACT WITH EDVIN WITHOUT REDNESS DRAINAGE OR EDEMA AND ALFREDO. INCONTINENT SMALL STOOL AND CLEANED AND DIAPER PLACED. ASSESSMENT COMPLETED SEE FLOW SHEET.
[2019-10-29] MEDS: SODIUM CHLORIDE 0.9% 1000ML 1,000 ML IV SCH ×2 (05:26→22:42)
--- NOTE | 2019-10-29 05:35 | NUR ---
POLYSOMNOGRAPHY TECH CALL MONAE BRYAN.POLYSOMNOGRAPHY TECH BEEPED DUE CONTINUED TACHYCARDIA AND BP STAYING 80'S SYSTOLIC NOW .SATS 95 TO96%. RESP REMAIN IN 30-40 .
[2019-10-29 05:48] LABS: BASOPHILS % (AUTO) 0.5 % (0.0-5.0); EOSINOPHILS % (AUTO) 0.2 % (0.0-8.0); HEMATOCRIT 35.1 % (42-54); LYMPHOCYTES % (AUTO) 2.6 % (21.0-51.0); MEAN CORPUSCULAR HEMOGLOBIN 28.5 pg (27.0-33.0); MEAN CORPUSCULAR HGB CONC 32.2 g/dL (32.0-36.0); MEAN CORPUSCULAR VOLUME 88.6 fL (79-99); MONOCYTES % (AUTO) 4.7 % (3.0-13.0); NEUTROPHILS % (AUTO) 91.5 % (40.0-77.0); NUCLEATED RED BLOOD CELLS 0.5 % (0.0-0.19); PLATELET COUNT (AUTO) 316 K/uL (130-400); RED BLOOD CELL COUNT(AUTO) 3.96 MIL/uL (4.50-6.20); RED CELL DISTRIBUTION WIDTH 13.7 % (11.0-15.5); WHITE BLOOD COUNT (AUTO) 9.5 K/uL (4.8-10.8)
--- NOTE | 2019-10-29 05:55 | NUR ---
FINANCIAL AID COUNSELOR CALL MONAE,FINANCIAL AID COUNSELOR CALLS BACK INFORMED OF CONTINUED TACHYCARDIA AND RESP IN 30'S AND BP STAYING IN 80'S NOW. ORDERS RECEIVED AND CARRIED OUT.
[2019-10-29] MEDS ORDERED: NOREPINEPHRINE 4MG/NS 250ML 250 ML IV SCH (06:15)
--- NOTE | 2019-10-29 06:20 | NUR ---
LEVOPHED DRIP STARTED AT 0.1MCG/KG/MIN TO MAINTAIN A MAP ABOVE 60.
[2019-10-29 06:27] LABS: CREATININE 4.7 mg/dL (0.5-1.5)
[2019-10-29 06:34] LABS: ABG BASE EXCESS -5.5 mmol/L (-2.0-3.0); ABG HCO3 15.9 mmol/L (21.0-28.0); ABG OXYGEN SATURATION 97.3 % (95.0-99.0); ABG PCO2 22 mmHg (35-48)
--- NOTE | 2019-10-29 06:35 | NUR ---
MD CALL MESSAGE LEFT FOR DR MACIEL ABOUT CONSULT FOR CRITICAL CARE MANAGEMENT.
--- NOTE | 2019-10-29 06:40 | NUR ---
MD CALL MESSAGE LEFT FOR DR MICHELLE FOR CONSULT.
[2019-10-29] MEDS: AMLODIPINE BESYLATE 5 MG TAB PO SCH (08:29)
[2019-10-29] MEDS: BICALUTAMIDE 50 MG PO SCH (08:29)
[2019-10-29] MEDS: RANITIDINE HCL 15 MG/1 ML PO SCH (08:35)
[2019-10-29] MEDS: SUCRALFATE 1 GM TABLET PO SCH ×4 (08:38→21:00)
[2019-10-29] MEDS: SENNOSIDES 8.6 MG TABLET PO SCH ×2 (08:38→21:00)
[2019-10-29] MEDS: TAMSULOSIN HCL 0.4 MG CAP.ER.24H PO SCH (08:39)
[2019-10-29] MEDS: BISACODYL 5 MG TABLET.DR PO SCH ×2 (08:39→21:00)
[2019-10-29] MEDS: LEVETIRACETAM 500 MG TABLET PO SCH (08:39)
[2019-10-29] MEDS ORDERED: VANCOMYCIN PROTOCOL PER PHARMACY IV PRN (09:00)
[2019-10-29] MEDS ORDERED: VANCOMYCIN 1GM+NS 250ML 250 ML IV SCH (09:00)
[2019-10-29] MEDS: MAGNESIUM HYDROXIDE 30 ML/UDCUP PO SCH (09:08)
[2019-10-29] MEDS: LUBIPROSTONE 24 MCG CAP PO SCH (09:08)
[2019-10-29] MEDS ORDERED: LACTATED RINGERS 1000ML IV SCH (09:30)
[2019-10-29] MEDS: MEROPENEM 500 MG VIAL IV SCH ×3 (10:09→17:45)
--- NOTE | 2019-10-29 11:33 | NUR ---
patient was transferred back to ICU due to change in status.Will wait for new PT order to re-evaluate patient as per MD's discretion. Addendum: 10/29/19 at 1135 by RIRI COSME, PT PT Amended: Links added.
--- NOTE | 2019-10-29 12:26 | NUR ---
RD FOLLOW UP Pt with poor PO intake. Pt with Laxatives/stool softeners in place. Pt pending renal U/S as per EMR. Recommend appetite stimulant when medically feasible. Protein supplementation contraindicated secondary to Renal dysfunction, Pt not currently receiving dialysis. RD to continue to monitor. Addendum: 10/29/19 at [address] Amended: Links added.
--- NOTE | 2019-10-29 12:34 | NUR ---
SKILLED SPEECH THERAPY COMPLETED. S: Pt ALERT AND COOPERATIVE DURING THE SESSION. NURSE LOBO REPORTS HE DOES NOT TALK TO NURSING TOO MUCH. Pt VERBAL AND ABLE TO RESPOND TO QUESTIONS WITH NUCLEAR SPECTROSCOPIST. O: Pt CURRENTLY TARGETING COGNITIVE AND LINGUISTIC GOALS. STG1: Pt WILL PARTICIPATE IN CONVERSATION WITH LESS THAN 1 CUE: 0% ACCURACY. ADDED GOALS: STG3: Pt WILL COMPLETE CONVERGENT/DIVERGENT NAMING (LIST OF 3) WITH 80% ACCURACY: 10% ACCURACY STG4: Pt WILL BE AAOX4 INDEPENDENTLY: Pt AAOX3 INDEPENDENTLY STG5: Pt WILL LABEL DESCRIBED OBJECTS WITH 80% ACCURACY: 20% ACCURACY STG6: Pt WILL PROVIDE OBJECT FUNCTION VERBALLY WITH 80% ACCURACY: 20% ACCURACY STG7: Pt WILL RESPOND TO OPEN ENDED QUESTIONS WITH LESS THAN 15 SECOND DELAY IN 80% ACCURACY: 50% ACCURACY A: Pt WITH DELAYED RESPONSES AT THIS TIME, REQUIRING TIME TO RESPOND TO QUESTIONS. Pt CURRENTLY ABLE TO FOLLOW COMMANDS AND RESPOND WITH ONE WORD. Pt REQUIRES CUES TO ELABORATE. OVERALL STATUS HAS SIGNIFICANTLY IMPROVED. Pt WITH BILATERAL MOVEMENTS OF UPPER AND LOWER EXTREMITIES AND ABLE TO PROVIDE ONE-STEP COMMANDS WITH FINE MOTOR MOVEMENTS. P: RECOMMEND CONTINUED SKILLED SPEECH THERAPY TARGETING EXPRESSIVE LANGUAGE SKILLS AND COGNITION. NUCLEAR SPECTROSCOPIST CALLED BIRGIT DUDLEY TO PROVIDE UPDATE OF CURRENT STATUS. SHE VERBALIZED UNDERSTANDING AND QUESTIONS ANSWERED VIA PHONE AT THIS TIME. Addendum: 10/29/19 at 1256 by [address] SHIRLEY [address] Amended: Links added.
--- NOTE | 2019-10-29 14:00 | NUR ---
JULIO CESAR PELAEZ FOR DR. CONTRERAS WAS NOTIFIED OF NEW CONSULT AND CT RESULTS AT THIS TIME. HE STATED HE WOULD BE BY SOON TO SEE THE PATIENT.
[2019-10-29 14:26] LABS: POTASSIUM 4.4 mmol/L (3.5-5.1); URIC ACID 9.9 mg/dL (2.6-7.2)
[2019-10-29] MEDS ORDERED: PROPOFOL 1000 MG/100 ML 100 ML IV ONE (15:14)
[2019-10-29] MEDS: MIDAZOLAM 50MG-0.9% NS 50ML 50 ML IV SCH (15:15)
--- NOTE | 2019-10-29 15:15 | NUR ---
PATIENT INTUBATED BY DR. MACIEL AT 1515. CXR ORDERED TO CONFIRM PLACEMENT.
[2019-10-29] MEDS ORDERED: FENTANYL 1000MCG+NS 100ML 100 ML ONE (15:20)
--- NOTE | 2019-10-29 15:25 | NUR ---
DR. CONTRERAS AT BEDSIDE DR. CONTRERAS AT BEDSIDE TO SPEAK WITH PATIENT'S . SHE EXPLAINED TO HER HIS CRITICAL STATUS AND PROGNOSIS. PATIENT'S WAS ABLE TO ASK QUESTIONS WHICH WERE ANSWERED BY DR. CONTRERAS. NO FURTHER QUESTIONS. DR. CONTRERAS CALLED OR TO SCHEDULE SURGERY.
[2019-10-29] MEDS: PANTOPRAZOLE 40 MG/VIAL IVP SCH (15:52)
[2019-10-29] MEDS: FLUCONAZOLE 400 MG/NS 200 ML 200 ML IV SCH (15:52)
[2019-10-29] MEDS ORDERED: PROPOFOL 10 MG/ML 20ML VIAL IV ONE (15:56)
[2019-10-29] MEDS ORDERED: ROCURONIUM 10MG/1ML SYR 10 MG/ML ML ONE ×2 (15:57→17:35)
[2019-10-29] MEDS: LINEZOLID 600 MG/ISO-OSM 300 ML IV SCH (15:59)
[2019-10-29 16:11] LABS: ABG BASE EXCESS -12.4 mmol/L (-2.0-3.0); ABG OXYGEN SATURATION 95.8 % (95.0-99.0); ABG PCO2 20 mmHg (35-48)
[2019-10-29] MEDS ORDERED: SODIUM BICARB 50MEQ 50ML VIAL ONE (16:18)
--- NOTE | 2019-10-29 16:25 | NUR ---
OR TEAM AT BEDSIDE. TUBE INSPECTOR AT BEDSIDE TO START ARTERIAL LINE. OR TEAM SPOKE TO PATIENT'S ABOUT PLAN AND TIME OF SURGERY. ASKED QUESTIONS THAT WERE ANSWERED BY OR TEAM.
--- NOTE | 2019-10-29 17:00 | NUR ---
PATIENT TAKEN TO OPERATING ROOM AT THIS TIME. PATIENT TAKEN TO OR AT THIS TIME WITH OR TEAM. STAYED AT BEDSIDE.
[2019-10-29] MEDS ORDERED: VASOPRESSIN 20 UNITS/ML 1ML VIAL ONE (17:22)
[2019-10-29 17:26] LABS: ABG BASE EXCESS 21.2 mmol/L (-2.0-3.0); ABG HCO3 43.1 mmol/L (21.0-28.0); ABG OXYGEN SATURATION 97.9 % (95.0-99.0); ABG PCO2 37 mmHg (35-48)
[2019-10-29] MEDS ORDERED: SODIUM BICARB 8.4% 50ML SYRINGE ONE (17:27)
[2019-10-29 17:43] LABS: ABG BASE EXCESS -4.8 mmol/L (-2.0-3.0); ABG HCO3 18.3 mmol/L (21.0-28.0); ABG OXYGEN SATURATION 98.4 % (95.0-99.0); ABG PCO2 28 mmHg (35-48)
[2019-10-29 18:29] LABS: ABG BASE EXCESS -4.6 mmol/L (-2.0-3.0); ABG HCO3 19.7 mmol/L (21.0-28.0); ABG OXYGEN SATURATION 98.5 % (95.0-99.0); ABG PCO2 34 mmHg (35-48)
[2019-10-29] MEDS ORDERED: ONDANSETRON HCL 4 MG/2 ML VIAL ONE (18:41)
[2019-10-29] MEDS ORDERED: DEXAMETHASONE SOD PHOSPHATE 10MG/ML 1ML VIAL ONE (18:41)
[2019-10-29 20:13] LABS: ABG BASE EXCESS -7.2 mmol/L (-2.0-3.0); ABG HCO3 18.7 mmol/L (21.0-28.0); ABG OXYGEN SATURATION 93.1 % (95.0-99.0); ABG PCO2 39 mmHg (35-48)
[2019-10-29] MEDS ORDERED: GLUCAGON 1MG KIT 1 MG ML IM PRN (20:30)
[2019-10-29] MEDS: ATORVASTATIN CALCIUM 40 MG TABLET PO SCH (21:00)
[2019-10-29] MEDS: DEXTROSE 50%-WATER 50 ML DISP.SYRIN IV PRN (21:20)
[2019-10-29 22:43] LABS: ABG BASE EXCESS -6.4 mmol/L (-2.0-3.0); ABG HCO3 17.7 mmol/L (21.0-28.0); ABG OXYGEN SATURATION 94.7 % (95.0-99.0); ABG PCO2 32 mmHg (35-48)
[2019-10-29] MEDS: NOREPINEPHRINE BITARTRATE 8 MG in SODIUM CHLORIDE 0.9% 250 ML IV PRN (23:09)
[2019-10-30] VITALS (82 sets, daily range): BP systolic 73–139; BP diastolic 39–118
[2019-10-30] MEDS: MEROPENEM 500 MG VIAL IV SCH ×3 (01:28→18:26)
[2019-10-30] MEDS: LINEZOLID 600 MG/ISO-OSM 300 ML IV SCH ×2 (03:06→15:33)
[2019-10-30] MEDS: FENTANYL 1000MCG+NS 100ML 100 ML IV SCH ×2 (03:50→23:02)
[2019-10-30 06:14] LABS: HEMATOCRIT 33.1 % (42-54); MEAN CORPUSCULAR HEMOGLOBIN 29.1 pg (27.0-33.0); MEAN CORPUSCULAR HGB CONC 32.6 g/dL (32.0-36.0); MEAN CORPUSCULAR VOLUME 89.2 fL (79-99); NUCLEATED RED BLOOD CELLS 0.6 % (0.0-0.19); PLATELET COUNT (AUTO) 300 K/uL (130-400); RED BLOOD CELL COUNT(AUTO) 3.71 MIL/uL (4.50-6.20); RED CELL DISTRIBUTION WIDTH 14.6 % (11.0-15.5); WHITE BLOOD COUNT (AUTO) 8.4 K/uL (4.8-10.8)
[2019-10-30 06:31] LABS: ALANINE AMINOTRANSFERASE 139 U/L (12-78); ASPARTATE AMINOTRANSFERASE 271 U/L (10-37); BILIRUBIN,TOTAL 0.5 mg/dL (0.2-1.0); CARBON DIOXIDE 17 mmol/L (21-32); CHLORIDE 113 mmol/L (101-111); CREATININE 5.9 mg/dL (0.5-1.5); GLOMERULAR FILTR. RATE CALC 10 mL/min (>60); GLUCOSE,RANDOM 169 mg/dL (70-105); POTASSIUM 5.3 mmol/L (3.5-5.1); SODIUM SERUM 148 mmol/L (136-145); TOTAL PROTEIN, SERUM 4.4 g/dL (6.0-8.3)
[2019-10-30 06:33] LABS: UREA NITROGEN, BLOOD 124 mg/dL (7-18)
[2019-10-30 08:13] LABS: ABG BASE EXCESS -10.4 mmol/L (-2.0-3.0); ABG HCO3 11.8 mmol/L (21.0-28.0); ABG PCO2 20 mmHg (35-48)
[2019-10-30] MEDS: NOREPINEPHRINE BITARTRATE 8 MG in SODIUM CHLORIDE 0.9% 250 ML IV PRN (08:16)
[2019-10-30] MEDS: SODIUM CHLORIDE 0.9% 1000ML 1,000 ML IV SCH (08:16)
[2019-10-30 08:31] LABS: BAND NEUTROPHILS % (MANUAL) 19 % (0-2); LYMPHOCYTES % (MANUAL) 6 % (22-44); MONOCYTES % (MANUAL) 26 % (2-9); SEGMENTED NEUTROPHILS % 49 % (40-70)
[2019-10-30 08:33] LABS: MAN.DIFF COMMENT-IMPRESSION MANUAL DIFFERENTIAL
[2019-10-30 08:34] LABS: PLATELET MORPHOLOGY COMMENT ADEQUATE
[2019-10-30] MEDS: THIAMINE HCL 100 MG/ML 2ML VIAL IVP SCH (08:46)
[2019-10-30] MEDS: TAMSULOSIN HCL 0.4 MG CAP.ER.24H PO SCH (08:50)
[2019-10-30] MEDS: BICALUTAMIDE 50 MG PO SCH (08:50)
[2019-10-30] MEDS: SUCRALFATE 1 GM TABLET PO SCH ×4 (08:50→20:50)
[2019-10-30] MEDS: BISACODYL 5 MG TABLET.DR PO SCH ×2 (08:50→20:50)
[2019-10-30] MEDS: MAGNESIUM HYDROXIDE 30 ML/UDCUP PO SCH (08:51)
[2019-10-30] MEDS: SENNOSIDES 8.6 MG TABLET PO SCH ×2 (08:51→20:51)
[2019-10-30] MEDS: AMLODIPINE BESYLATE 5 MG TAB PO SCH (08:51)
[2019-10-30] MEDS: MIDAZOLAM 50MG-0.9% NS 50ML 50 ML IV SCH ×2 (09:01→23:03)
[2019-10-30] MEDS: 1/2 NORMAL SALINE 1,000 ML IV SCH ×2 (09:48→20:50)
[2019-10-30] MEDS: FLUCONAZOLE 400 MG/NS 200 ML 200 ML IV SCH (09:49)
[2019-10-30] MEDS: PANTOPRAZOLE 40 MG/VIAL IVP SCH (09:49)
[2019-10-30] MEDS ORDERED: LEVETIRACETAM 500 MG in SODIUM CHLORIDE 0.9% 100 ML IV SCH (10:30)
--- NOTE | 2019-10-30 10:37 | NUR ---
HOLD TREATMENT Pt CURRENTLY INTUBATED. HOLD TREATMENT AT THIS TIME. RE-EVALUATION IS RECOMMENDED S/P EXTUBATION. DIRECTOR TELEVISION COORDINATED CARE WITH NURSE NIMO. Addendum: 10/30/19 at 1040 by NANCY SHIRLEY, [facility] ST Amended: Links added.
[2019-10-30 10:42] LABS: CREATININE,URINE RANDOM 77 mg/dL (30-135); SODIUM,URINE RANDOM 34 mmol/l (40-220)
[2019-10-30 10:45] LABS: APPEARANCE,URINE CLEAR (CLEAR); BILIRUBIN,URINE SMALL (NEGATIVE); COLOR,URINE YELLOW (YELLOW); GLUCOSE, URINE (UA) NEGATIVE (NEGATIVE); KETONES,URINE NEGATIVE (NEGATIVE); LEUKOCYTE ESTERASE ,URINE NEGATIVE (NEGATIVE); NITRATE,URINE NEGATIVE (NEGATIVE); OCCULT BLOOD,URINE SMALL (NEGATIVE); PROTEIN,URINE 100 mg/dL (NEGATIVE); UROBILINOGEN,URINE 0.2 mg/dL (0.2-1.0)
--- NOTE | 2019-10-30 10:48 | NUR ---
RD UPDATE PATIENT WITH HIGH MALNUTRITION RISK - POOR PO (<25%)/NPO since admit. POSSIBLE BOWEL PERFORATION. RENAL FAILURE. RECOMMEND ALTERED MEANS NUTRITION - TPN. RD TO FOLLOW UP.
[2019-10-30 10:56] LABS: RBC,URINE 0-1 /HPF (0-1); WBC,URINE 0-1 /HPF (0-1)
[2019-10-30 10:57] LABS: BACTERIA,URINE Few /HPF (None Seen)
[2019-10-30 11:01] LABS: AMORPHOUS SEDIMENT,UR Many /LPF (None Seen); SQUAMOUS EPITHELIAL CELL,UR Rare /HPF (0-2)
[2019-10-30] MEDS: NOREPINEPHRINE BITARTRATE 32 MG in SODIUM CHLORIDE 0.9% 250 ML IV SCH (11:36)
[2019-10-30] MEDS ORDERED: COMPOUND IV MISC 1 EACH IVSOLN MISC PRN (12:15)
[2019-10-30] MEDS: VASOPRESSIN 40 UNITS in SODIUM CHLORIDE 0.9% 40 ML IV SCH ×2 (13:57→20:49)
--- NOTE | 2019-10-30 14:11 | NUR ---
END OF LIFE Sw contacted by LEIF regarding pt and poor prognosis. at bedside, pt is full code and possible withdrawal/GIP. Liam met with pt's who reports that she [place] the [place] to their home in [place], when pt began having signs and symptoms of CVA. brought pt to hospital and things have just gotten worse since then. Couple has 8 adult children and pt has a son from a previous relationship who lives in [facility]. states that MD has told her that pt's organs are starting to shut down, and he is needing dialysis but pt can not tolerate it. SW discussed code status with and she states that she and family would not want pt resuscitated. Sw educated on DNR and is agreeable to signing this. SW educated on Inpt hospice, should family decided that this is not what pt would have wanted. Discussed wanting children to see pt once last time. Informed that in the event she and family decided to withdraw, hospital can try and accommodate children to briefly see pt. Sw explained that I can not guarantee that they can see pt all at the same time, nor for how long they can see pt, but we can try and work with family during this difficult time. states she wants to talk to her kids and explain to them what I told her and see what they say. Liam discussed this with CMD and Tanya, ICU Director. Tanya spoke to Jackie Phillips in . at this time, if family will give us a time and day that they will all be here, ICU can alert security and ICU staff of arrangements and plan for children to see pt 1 last time. Nurse Luis Daniel informed of DNR and will have sign. Sw spoke to and she states children would like pt to continue treatment for another 24 hours, to allow them time to make travel arrangements. Sw informed of [facility] in [facility] going into effect tonight and possibility of obstacles for children to travel. Explained to that only pt's 9 adult children would be allowed if we proceed with plan to withdraw and possible GIP. Tanya ICUD and Luis Daniel nurse aware of above
[2019-10-30] MEDS: ATORVASTATIN CALCIUM 40 MG TABLET PO SCH (20:51)
[2019-10-31] VITALS (86 sets, daily range): BP systolic 84–140; BP diastolic 48–84
[2019-10-31] MEDS: MEROPENEM 500 MG VIAL IV SCH ×3 (01:23→16:27)
[2019-10-31] MEDS: LINEZOLID 600 MG/ISO-OSM 300 ML IV SCH ×2 (03:01→16:26)
[2019-10-31] MEDS: 1/2 NORMAL SALINE 1,000 ML IV SCH (04:45)
[2019-10-31 05:33] LABS: BASOPHILS % (AUTO) 0.6 % (0.0-5.0); HEMATOCRIT 28.4 % (42-54); LYMPHOCYTES % (AUTO) 2.2 % (21.0-51.0); MEAN CORPUSCULAR HEMOGLOBIN 28.5 pg (27.0-33.0); MEAN CORPUSCULAR HGB CONC 31.7 g/dL (32.0-36.0); MEAN CORPUSCULAR VOLUME 89.9 fL (79-99); MONOCYTES % (AUTO) 2.9 % (3.0-13.0); NEUTROPHILS % (AUTO) 93.6 % (40.0-77.0); NUCLEATED RED BLOOD CELLS 1.3 % (0.0-0.19); PLATELET COUNT (AUTO) 266 K/uL (130-400); RED BLOOD CELL COUNT(AUTO) 3.16 MIL/uL (4.50-6.20); RED CELL DISTRIBUTION WIDTH 15.3 % (11.0-15.5); WHITE BLOOD COUNT (AUTO) 8.9 K/uL (4.8-10.8)
[2019-10-31 05:54] LABS: ALANINE AMINOTRANSFERASE 263 U/L (12-78); ALBUMIN 0.8 g/dL (3.5-5.0); ASPARTATE AMINOTRANSFERASE 517 U/L (10-37); BILIRUBIN,TOTAL 0.6 mg/dL (0.2-1.0); CARBON DIOXIDE 18 mmol/L (21-32); CHLORIDE 111 mmol/L (101-111); CREATININE 6.6 mg/dL (0.5-1.5); GLOMERULAR FILTR. RATE CALC 9 mL/min (>60); GLUCOSE,RANDOM 162 mg/dL (70-105); SODIUM SERUM 145 mmol/L (136-145); TOTAL PROTEIN, SERUM 4.7 g/dL (6.0-8.3)
[2019-10-31 06:07] LABS: POTASSIUM 6.1 mmol/L (3.5-5.1); UREA NITROGEN, BLOOD 150 mg/dL (7-18)
[2019-10-31] MEDS: SUCRALFATE 1 GM TABLET PO SCH ×2 (09:00→13:00)
[2019-10-31] MEDS: TAMSULOSIN HCL 0.4 MG CAP.ER.24H PO SCH (09:00)
[2019-10-31] MEDS: MAGNESIUM HYDROXIDE 30 ML/UDCUP PO SCH (09:00)
[2019-10-31] MEDS: BICALUTAMIDE 50 MG PO SCH (09:00)
[2019-10-31] MEDS: AMLODIPINE BESYLATE 5 MG TAB PO SCH (09:00)
[2019-10-31] MEDS: SENNOSIDES 8.6 MG TABLET PO SCH (09:00)
[2019-10-31] MEDS: BISACODYL 5 MG TABLET.DR PO SCH (09:00)
--- NOTE | 2019-10-31 09:21 | NUR ---
SS f/u Sw met with pt's who states that 4 of her children arrived last night and 4 are due in [place] at anytime. Pt's son from [place] is still working on trying to drive down here. reports pt's condition is stable, meaning that pt is the same, and has not improved or gotten worse. states that at this point, she and children wish to continue treatment. states she understands that things may not get better, but she is not giving up hope for recovery. asked more questions about hospice/ comfort measures, should they decide to withdraw. Sw answered all questions asked. Encouraged to ask nurse and MDs any questions she may have that would help her make informed decisions. Sw provided emotional support. states she feels better knowing that her kids are in town and here to support her as needed. Sw explained to that should she decided to withdraw, we would need time to coordinate children visiting pt. voiced understanding Nurse Luis Daniel landry.
[2019-10-31] MEDS: LEVETIRACETAM 500 MG in SODIUM CHLORIDE 0.9% 100 ML IV SCH (10:03)
[2019-10-31] MEDS: THIAMINE HCL 100 MG/ML 2ML VIAL IVP SCH (10:04)
[2019-10-31] MEDS: PANTOPRAZOLE 40 MG/VIAL IVP SCH (10:04)
[2019-10-31] MEDS: FLUCONAZOLE 400 MG/NS 200 ML 200 ML IV SCH (10:56)
[2019-10-31] MEDS: MIDAZOLAM 50MG-0.9% NS 50ML 50 ML IV SCH (10:56)
--- NOTE | 2019-10-31 13:40 | NUR ---
RD UPDATE Pt with poor Prognosis. Requested Altered means nutrition - Peripheral Parenteral Nutrition for Pt, contacted RN. Awaiting response from . Please contact RD for updated POC. Thank you.
--- NOTE | 2019-10-31 15:12 | NUR ---
FEEDING RECOMMENDATIONS Pending picc placement. Planning to start Dialysis, however pending catheter placement at this time. RD consulted for TPN and TF recommendations when pt is on Nepro at 10ml/hr. RD recommends to continue Nepro at 10ml/hr - Monitor renal labs and residuals RD recommends to start TPN via PICC using Clinimix 5/15 at 20ml/hr ;when TF is running at 10ml/hr Run lipid panel Monitor labs, tolerance and BM RD will follow up tomorrow regarding lipid panel (in order to add intralipids to TPN), thank you.
[2019-10-31] MEDS ORDERED: DEXMEDETOMIDINE HCL 200 MCG in SODIUM CHLORIDE 0.9% 50 ML IV SCH (17:15)
[2019-10-31] MEDS: FENTANYL 1000MCG+NS 100ML 100 ML IV SCH (17:24)
[2019-10-31] MEDS: VASOPRESSIN 40 UNITS in SODIUM CHLORIDE 0.9% 40 ML IV SCH (17:26)
[2019-10-31] MEDS ORDERED: M.V.I. IV [ADULT] 10 ML in CLINIMIX E 5%-15% 2,000 ML IV SCH (20:00)
[2019-10-31] MEDS ORDERED: SODIUM CHLORIDE 0.9% 500ML 500 ML IV ONE (23:14)
[2019-11-01] VITALS (94 sets, daily range): BP systolic 80–143; BP diastolic 45–82
--- NOTE | 2019-11-01 | NUR ---
INTRA-ABDOMINAL PRESSURE INTRA ABDOMINAL PRESSURE, 16
[2019-11-01] MEDS: MEROPENEM 500 MG VIAL IV SCH ×3 (00:44→17:39)
[2019-11-01] MEDS: LINEZOLID 600 MG/ISO-OSM 300 ML IV SCH ×2 (04:26→17:56)
[2019-11-01 06:22] LABS: BASOPHILS % (AUTO) 0.3 % (0.0-5.0); HEMATOCRIT 26.8 % (42-54); LYMPHOCYTES % (AUTO) 2.2 % (21.0-51.0); MEAN CORPUSCULAR HEMOGLOBIN 29.3 pg (27.0-33.0); MEAN CORPUSCULAR HGB CONC 32.1 g/dL (32.0-36.0); MEAN CORPUSCULAR VOLUME 91.2 fL (79-99); MONOCYTES % (AUTO) 1.2 % (3.0-13.0); NEUTROPHILS % (AUTO) 95.8 % (40.0-77.0); NUCLEATED RED BLOOD CELLS 0.2 % (0.0-0.19); PLATELET COUNT (AUTO) 222 K/uL (130-400); RED BLOOD CELL COUNT(AUTO) 2.94 MIL/uL (4.50-6.20); RED CELL DISTRIBUTION WIDTH 15.7 % (11.0-15.5); WHITE BLOOD COUNT (AUTO) 10.4 K/uL (4.8-10.8)
[2019-11-01 06:45] LABS: ALBUMIN 0.8 g/dL (3.5-5.0); BILIRUBIN,TOTAL 0.5 mg/dL (0.2-1.0); MAGNESIUM 3.8 mg/dL (1.80-2.40); PHOSPHORUS 9.4 mg/dL (2.5-4.9); TOTAL PROTEIN, SERUM 4.8 g/dL (6.0-8.3)
[2019-11-01 06:55] LABS: POTASSIUM 6.6 mmol/L (3.5-5.1)
[2019-11-01] MEDS: FLUCONAZOLE 400 MG/NS 200 ML 200 ML IV SCH (08:49)
[2019-11-01] MEDS: THIAMINE HCL 100 MG/ML 2ML VIAL IVP SCH (08:49)
[2019-11-01] MEDS: PANTOPRAZOLE 40 MG/VIAL IVP SCH (08:52)
--- NOTE | 2019-11-01 09:00 | NUR ---
DR. MICHELLE AT BEDSIDE DR. MICHELLE ASKED WHO IS AT BEDSIDE IF THEY ARE CONSIDERING DIALYSIS, STATED THEY DO NOT WANT DIALYSIS. HE WAS NOTIFIED ABOUT 6.6 POTASSIUM LEVEL. CALCIUM GLUCONATE WAS ORDERED. ABG ORDERED.
[2019-11-01] MEDS ORDERED: CALCIUM GLUCONATE 1 GM/10 ML VIAL IV SCH (09:15)
[2019-11-01] MEDS ORDERED: CALCIUM GLUCONATE 1 GM in SODIUM CHLORIDE 0.9% 50 ML IV SCH (09:30)
[2019-11-01 09:48] LABS: ABG BASE EXCESS -8.5 mmol/L (-2.0-3.0); ABG OXYGEN SATURATION 98.3 % (95.0-99.0); ABG PCO2 27 mmHg (35-48)
--- NOTE | 2019-11-01 10:28 | NUR ---
TPN RECOMMENDATIONS Tube feeding order was cancelled, pt only receiving TPN @20ml/hr, at this time. Elevated TG at 560, noted. refusing dialysis at this time. RD recommends to increase TPN to 40ml/hr Continue thiamine supp. daily Do not add intralipids due to elevated TG RN was notified. RD will continue to monitor and follow up, thank you.
--- NOTE | 2019-11-01 10:35 | NUR ---
JULIO CESAR PELAEZ AT BEDSIDE JULIO CESAR PELAEZ AT BEDSIDE TO EVALUATE PATIENT.NOTIFIED THAT IS REFUSING DIALYSIS. HE STATED TO CALL VOCATIONAL EVALUATOR TO LET THEM KNOW. GAGAN POWERS NOTIFIED AT 1033. SHE STATED SHE WILL BE BY TO SPEAK WITH THE .
[2019-11-01] MEDS: LEVETIRACETAM 500 MG in SODIUM CHLORIDE 0.9% 100 ML IV SCH (10:37)
--- NOTE | 2019-11-01 12:48 | NUR ---
f/u visit Sw met with who states she is waiting for MD to round so that MD can talk to her children and update them on pt's condition. states she knows that pt is critical and a decision needs to made because she feels pt is suffering. wants her daughter who is a nurse to talk to MD and wants her children to have no doubts about the decision they make. Sw provided emotional support. SW Informed nurse of above. Dr Clifton and Jessica to round.
--- NOTE | 2019-11-01 14:29 | NUR ---
INCREASE TPN RATE PT WILL BE STARTED ON DIALYSIS TODAY PER MD. RD RECOMMENDS TO INCREASE TPN RATE TO 85ML/HR ADD 10ML ADULT MULTIVITAMINS ADD 3ML TRACE ELEMENTS DO NOT ADD INTRALIPIDS DUE TO ELEVATED TG RN NOTIFIED REGARDING THESE NEW RECOMMENDATIONS. RD WILL CONTINUE TO MONITOR AND FOLLOW UP, THANK YOU.
[2019-11-01] MEDS: MICAFUNGIN 100MG+NS 100ML 100 ML IV SCH (15:18)
[2019-11-01] MEDS ORDERED: LIDOCAINE HCL 1% 20 ML VIAL ONE (16:10)
[2019-11-01] MEDS ORDERED: ALBUMIN (HUMAN) 25% 100 ML IV ONE ×2 (18:45→18:48)
[2019-11-01 19:22] LABS: HEMATOCRIT 26.6 % (42-54)
[2019-11-01 19:46] LABS: ALBUMIN 0.8 g/dL (3.5-5.0)
[2019-11-01] MEDS ORDERED: HEPARIN SODIUM 5000UNIT/ML 1ML VIAL ONE (20:10)
[2019-11-01 20:42] LABS: % IRON SATURATION 12.6 % (30-44)
[2019-11-02] VITALS (97 sets, daily range): BP systolic 89–147; BP diastolic 45–122
[2019-11-02] MEDS: MEROPENEM 500 MG VIAL IV SCH ×3 (00:27→17:16)
[2019-11-02] MEDS: NOREPINEPHRINE BITARTRATE 32 MG in SODIUM CHLORIDE 0.9% 250 ML IV SCH (00:28)
[2019-11-02] MEDS: LINEZOLID 600 MG/ISO-OSM 300 ML IV SCH ×2 (02:00→14:16)
[2019-11-02 04:48] LABS: ALBUMIN 1.1 g/dL (3.5-5.0); BILIRUBIN,TOTAL 0.6 mg/dL (0.2-1.0); CREATININE 5.5 mg/dL (0.5-1.5); MAGNESIUM 2.9 mg/dL (1.80-2.40); PHOSPHORUS 7.8 mg/dL (2.5-4.9); POTASSIUM 4.9 mmol/L (3.5-5.1); TOTAL PROTEIN, SERUM 4.7 g/dL (6.0-8.3)
--- NOTE | 2019-11-02 08:30 | NUR ---
DR. SHANDA LAND NOTIFIED OF PATIENT'S CURRENT STATUS. NO NEW ORDERS GIVEN.
[2019-11-02] MEDS: PANTOPRAZOLE 40 MG/VIAL IVP SCH (09:28)
[2019-11-02] MEDS: THIAMINE HCL 100 MG/ML 2ML VIAL IVP SCH (09:28)
[2019-11-02] MEDS: LEVETIRACETAM 500 MG in SODIUM CHLORIDE 0.9% 100 ML IV SCH (09:28)
[2019-11-02] MEDS ORDERED: SODIUM CHLORIDE 0.9% 500ML 500 ML IV ONE (09:30)
--- NOTE | 2019-11-02 10:11 | NUR ---
f/u visit SW nurse Dr Lopez met with and spoke to family on face time. Dr Lopez discussed courrent condition and answered all questions asked. FAmily decided to move forward with dialysis. Pt was able to tolerate treatment. Possible dialysis again today. SW met with who states family felt that since Dr Lopez told them that liver was improving, they were comfort moving forward with dialysis. states that she and family feel that if they is any improvement, they believe that pt is still wanting to fight and they will fight along with him and for him. reports pt has had an increase in urine out put and she feels this too is a sign pt is moving in right direction. she is realistic ans aware that things could change, but for now she remains hopeful for recovery. Sw provided emotional support and will continue to follow and assist as needed
[2019-11-02] MEDS: MICAFUNGIN 100MG+NS 100ML 100 ML IV SCH (12:19)
[2019-11-02] MEDS: ALBUMIN (HUMAN) 25% 100 ML IV PRN (12:20)
[2019-11-02] MEDS ORDERED: HEPARIN SODIUM 5000UNIT/ML 1ML VIAL ONE (13:59)
[2019-11-02] MEDS ORDERED: HEPARIN SODIUM 5000UNIT/ML 1ML VIAL IJ SCH (14:30)
[2019-11-02] MEDS ORDERED: LIDOCAINE HCL-MPF 1% 2ML VIAL IJ PRN (15:00)
[2019-11-02] MEDS ORDERED: 0.9% SODIUM CHLORIDE 1000 ML IV BAG IV PRN (15:00)
[2019-11-02] MEDS ORDERED: ACETAMINOPHEN 325 MG TAB PO PRN (15:00)
[2019-11-02] MEDS ORDERED: SODIUM CHLORIDE 0.9% 1000ML 1,000 ML IV PRN (15:00)
[2019-11-02] MEDS ORDERED: HEPARIN SODIUM 5000UNIT/ML 1ML VIAL IJ PRN (15:00)
[2019-11-02] MEDS ORDERED: NITROGLYCERIN 0.4 MG SL TAB SL PRN (15:00)
--- NOTE | 2019-11-02 16:30 | NUR ---
CT HEAD RESULTS DR. ROGER NOTIFIED OF CT HEAD RESULTS AT 1627, STATED TO ORDER REPEAT CT HEAD FOR AM AND NOTIFY DR. LAND. DR. LAND MADE AWARE OF RESULTS AT 1630. HE STATED THERE WAS NOTHING HE COULD DO FROM HIS STANDPOINT AND TO CONTINUE TO MONITOR PATIENT.
[2019-11-02] MEDS ORDERED: M.V.I. IV [ADULT] 10 ML in CLINIMIX E 5%-15% 2,000 ML IV SCH (20:00)
[2019-11-03] VITALS (84 sets, daily range): BP systolic 82–131; BP diastolic 34–94
[2019-11-03] MEDS: MEROPENEM 500 MG VIAL IV SCH ×3 (00:06→17:12)
--- NOTE | 2019-11-03 01:26 | NUR ---
0100: Transported patient to ct scan at this time. v/s stable, o2 sat 100% throughout exam. patient return to icu bed 210. in no apparent distress. will continue to monitor.
[2019-11-03] MEDS: LINEZOLID 600 MG/ISO-OSM 300 ML IV SCH ×2 (01:31→14:43)
[2019-11-03 03:36] LABS: HEMATOCRIT 21.9 % (42-54); MEAN CORPUSCULAR HEMOGLOBIN 29.3 pg (27.0-33.0); MEAN CORPUSCULAR HGB CONC 32.9 g/dL (32.0-36.0); NUCLEATED RED BLOOD CELLS 0.7 % (0.0-0.19); PLATELET COUNT (AUTO) 118 K/uL (130-400); RED BLOOD CELL COUNT(AUTO) 2.46 MIL/uL (4.50-6.20); RED CELL DISTRIBUTION WIDTH 15.1 % (11.0-15.5); WHITE BLOOD COUNT (AUTO) 4.4 K/uL (4.8-10.8)
[2019-11-03 03:47] LABS: ABG HCO3 21.8 mmol/L (21.0-28.0); ABG OXYGEN SATURATION 94.5 % (95.0-99.0); ABG PCO2 28 mmHg (35-48)
[2019-11-03 03:48] LABS: ALBUMIN 1.2 g/dL (3.5-5.0); BILIRUBIN,TOTAL 0.8 mg/dL (0.2-1.0); CREATININE 4.2 mg/dL (0.5-1.5); MAGNESIUM 2.4 mg/dL (1.80-2.40); PHOSPHORUS 6.1 mg/dL (2.5-4.9); POTASSIUM 4.2 mmol/L (3.5-5.1); TOTAL PROTEIN, SERUM 4.6 g/dL (6.0-8.3)
[2019-11-03 03:54] LABS: BAND NEUTROPHILS % (MANUAL) 8 % (0-2); LYMPHOCYTES % (MANUAL) 7 % (22-44); MAN.DIFF COMMENT-IMPRESSION MANUAL DIFFERENTIAL; SEGMENTED NEUTROPHILS % 85 % (40-70)
[2019-11-03 08:10] LABS: HEPATITIS Bs ANTIGEN SCREEN P Negative (Negative)
[2019-11-03] MEDS: PANTOPRAZOLE 40 MG/VIAL IVP SCH (09:16)
[2019-11-03] MEDS: LEVETIRACETAM 500 MG in SODIUM CHLORIDE 0.9% 100 ML IV SCH (09:17)
[2019-11-03] MEDS: THIAMINE HCL 100 MG/ML 2ML VIAL IVP SCH (09:17)
--- NOTE | 2019-11-03 11:57 | NUR ---
Per Dr. Lopez ETT pushed 1cm to 25 cm at lip.
[2019-11-03] MEDS: MICAFUNGIN 100MG+NS 100ML 100 ML IV SCH (13:45)
[2019-11-03] MEDS ORDERED: M.V.I. IV [ADULT] 10 ML in CLINIMIX E 5%-15% 2,000 ML IV SCH (20:00)
[2019-11-04] VITALS (58 sets, daily range): BP systolic 72–121; BP diastolic 44–73
[2019-11-04] MEDS: MEROPENEM 500 MG VIAL IV SCH ×3 (00:46→17:04)
[2019-11-04] MEDS: LINEZOLID 600 MG/ISO-OSM 300 ML IV SCH ×2 (02:30→14:49)
[2019-11-04 03:54] LABS: BASOPHILS % (AUTO) 0.2 % (0.0-5.0); EOSINOPHILS % (AUTO) 0.4 % (0.0-8.0); HEMATOCRIT 21.4 % (42-54); LYMPHOCYTES % (AUTO) 4.9 % (21.0-51.0); MEAN CORPUSCULAR HEMOGLOBIN 28.6 pg (27.0-33.0); MEAN CORPUSCULAR HGB CONC 32.2 g/dL (32.0-36.0); MEAN CORPUSCULAR VOLUME 88.8 fL (79-99); MONOCYTES % (AUTO) 1.8 % (3.0-13.0); NEUTROPHILS % (AUTO) 91.3 % (40.0-77.0); NUCLEATED RED BLOOD CELLS 1.4 % (0.0-0.19); PLATELET COUNT (AUTO) 98 K/uL (130-400); RED BLOOD CELL COUNT(AUTO) 2.41 MIL/uL (4.50-6.20); RED CELL DISTRIBUTION WIDTH 14.8 % (11.0-15.5); WHITE BLOOD COUNT (AUTO) 4.9 K/uL (4.8-10.8)
[2019-11-04 04:08] LABS: CREATININE 3.4 mg/dL (0.5-1.5); MAGNESIUM 2.2 mg/dL (1.80-2.40); PHOSPHORUS 5.5 mg/dL (2.5-4.9); POTASSIUM 4.1 mmol/L (3.5-5.1); TOTAL PROTEIN, SERUM 4.6 g/dL (6.0-8.3)
--- NOTE | 2019-11-04 07:08 | NUR ---
DR MICHELLE NOTIFIED OF HGB 6.9 -NO NEW ORDERS .
[2019-11-04] MEDS: LEVETIRACETAM 500 MG in SODIUM CHLORIDE 0.9% 100 ML IV SCH (08:13)
[2019-11-04] MEDS: THIAMINE HCL 100 MG/ML 2ML VIAL IVP SCH (08:14)
[2019-11-04] MEDS: PANTOPRAZOLE 40 MG/VIAL IVP SCH (10:01)
[2019-11-04] MEDS: MICAFUNGIN 100MG+NS 100ML 100 ML IV SCH (12:27)
[2019-11-04] MEDS ORDERED: HYDROMORPHONE HCL 0.5 MG/0.5 ML ML IVP PRN (13:00)
[2019-11-04] MEDS ORDERED: HYDROMORPHONE 1 MG/1 ML AMP IVP PRN (13:15)
[2019-11-04] MEDS ORDERED: EPOETIN ALFA 10,000 UNIT/ML VIAL SQ SCH (15:00)
[2019-11-04] MEDS: M.V.I. IV [ADULT] 10 ML in CLINIMIX E 5%-15% 2,000 ML IV SCH (20:55)
[2019-11-04] MEDS ORDERED: NOREPINEPHRINE BITARTRATE 1 MG/1 ML ML IV ONE (21:11)
[2019-11-04] MEDS ORDERED: SODIUM CHLORIDE 0.9% 250 ML IV ONE (21:12)
[2019-11-04] MEDS ORDERED: NOREPINEPHRINE 4MG/NS 250ML 250 ML IV SCH (21:30)
[2019-11-05] VITALS (62 sets, daily range): BP systolic 71–151; BP diastolic 25–91
[2019-11-05] MEDS: MEROPENEM 500 MG VIAL IV SCH ×3 (00:30→17:34)
[2019-11-05] MEDS: LINEZOLID 600 MG/ISO-OSM 300 ML IV SCH ×2 (01:50→15:34)
[2019-11-05 03:52] LABS: BASOPHILS % (AUTO) 0.2 % (0.0-5.0); EOSINOPHILS % (AUTO) 0.7 % (0.0-8.0); LYMPHOCYTES % (AUTO) 5.6 % (21.0-51.0); MEAN CORPUSCULAR HEMOGLOBIN 28.6 pg (27.0-33.0); MEAN CORPUSCULAR HGB CONC 31.8 g/dL (32.0-36.0); MEAN CORPUSCULAR VOLUME 89.7 fL (79-99); MONOCYTES % (AUTO) 1.8 % (3.0-13.0); NEUTROPHILS % (AUTO) 88.1 % (40.0-77.0); NUCLEATED RED BLOOD CELLS 0.7 % (0.0-0.19); PLATELET COUNT (AUTO) 95 K/uL (130-400); RED BLOOD CELL COUNT(AUTO) 2.24 MIL/uL (4.50-6.20); RED CELL DISTRIBUTION WIDTH 15.2 % (11.0-15.5); WHITE BLOOD COUNT (AUTO) 4.4 K/uL (4.8-10.8)
[2019-11-05 03:57] LABS: HEMATOCRIT 20.1 % (42-54)
[2019-11-05 04:16] LABS: ALBUMIN 0.9 g/dL (3.5-5.0); BILIRUBIN,TOTAL 1.1 mg/dL (0.2-1.0); CREATININE 4.3 mg/dL (0.5-1.5); MAGNESIUM 2.5 mg/dL (1.80-2.40); PHOSPHORUS 7.9 mg/dL (2.5-4.9); POTASSIUM 4.3 mmol/L (3.5-5.1); TOTAL PROTEIN, SERUM 4.4 g/dL (6.0-8.3)
[2019-11-05] MEDS: PANTOPRAZOLE 40 MG/VIAL IVP SCH (08:27)
[2019-11-05] MEDS: ACETAMINOPHEN 325 MG TAB PO PRN (08:29)
[2019-11-05] MEDS: THIAMINE HCL 100 MG/ML 2ML VIAL IVP SCH (08:30)
[2019-11-05] MEDS: LEVETIRACETAM 500 MG in SODIUM CHLORIDE 0.9% 100 ML IV SCH (08:41)
--- NOTE | 2019-11-05 09:26 | NUR ---
RECEIVED ORDER FOR 1 PRBC DURING DIALYSIS
[2019-11-05] MEDS ORDERED: EPOETIN ALFA 10,000 UNIT/ML VIAL SQ SCH (09:30)
[2019-11-05] MEDS: SODIUM CHLORIDE 0.9% 500ML 500 ML IV SCH (10:15)
[2019-11-05] MEDS ORDERED: SODIUM CHLORIDE 0.9% 500ML 500 ML IV ONE (10:23)
[2019-11-05] MEDS: MICAFUNGIN 100MG+NS 100ML 100 ML IV SCH (11:49)
--- NOTE | 2019-11-05 12:21 | NUR ---
f/u visit Liam visited with pt's . very excited. States pt is improving, states pt is opening his eyes and she states he responds to her by blinking. states these are tiny signs of improvement but she is taking them as huge and good signs. Pt staying strong in her benita that pt will recover. Pt states he kids have all returned to [place] and she is here alone. Pt stays at hotel at night and is resting. Sw provided emotional support
[2019-11-05] MEDS ORDERED: DEXMEDETOMIDINE HCL 400 MCG in SODIUM CHLORIDE 0.9% 100 ML IV SCH (15:45)
--- NOTE | 2019-11-05 16:06 | NUR ---
f/u Sw met with pt's who states that trach is pending for tomorrow. states that she really did not want this but knows that this is necessary for pt to continue to improve. hopeful that with trach and PT, pt will continue to improve. SW provided emotional support
[2019-11-05] MEDS: SENNOSIDES 8.6 MG TABLET PO SCH (17:34)
[2019-11-05] MEDS: ONDANSETRON HCL 4 MG/2 ML VIAL IV PRN (17:34)
[2019-11-05] MEDS: METOCLOPRAMIDE 10 MG/2 ML VIAL IVP SCH (17:49)
[2019-11-05] MEDS: M.V.I. IV [ADULT] 10 ML in CLINIMIX E 5%-15% 2,000 ML IV SCH (19:13)
[2019-11-05] MEDS ORDERED: [UNRECOGNIZED DRUG - NUTRITION] IV ONE (19:45)
[2019-11-05] MEDS: DOCUSATE NA 100MG/10ML UDCUP PO SCH (20:27)
[2019-11-05] MEDS: ARTIFICAL TEARS SOL 15 ML OU SCH (20:28)
--- NOTE | 2019-11-05 21:02 | NUR ---
Temp 101.9 < 99.0 with cool packs- reported to KAREN Vaughan. Ok for Tylenol , labs in am. continue antiobiotics
[2019-11-06] VITALS (47 sets, daily range): BP systolic 89–150; BP diastolic 45–82
[2019-11-06] MEDS: METOCLOPRAMIDE 10 MG/2 ML VIAL IVP SCH ×4 (01:03→17:59)
[2019-11-06] MEDS: MEROPENEM 500 MG VIAL IV SCH ×3 (01:10→17:23)
[2019-11-06] MEDS: LINEZOLID 600 MG/ISO-OSM 300 ML IV SCH ×2 (01:50→21:28)
--- NOTE | 2019-11-06 01:50 | NUR ---
STEVEN UNAVAILABLE-SPOKE TO PHARMACIST EVON-ADMINISTRATION TIMES TO BE CHANGED IN AM BY PHARMACY.
[2019-11-06] MEDS ORDERED: PHARMACY COMMUNICATION MISC SCH (04:00)
[2019-11-06 04:47] LABS: BASOPHILS % (AUTO) 0.3 % (0.0-5.0); EOSINOPHILS % (AUTO) 0.8 % (0.0-8.0); HEMATOCRIT 21.9 % (42-54); LYMPHOCYTES % (AUTO) 6.5 % (21.0-51.0); MEAN CORPUSCULAR HEMOGLOBIN 28.2 pg (27.0-33.0); MEAN CORPUSCULAR HGB CONC 32.9 g/dL (32.0-36.0); MEAN CORPUSCULAR VOLUME 85.9 fL (79-99); MONOCYTES % (AUTO) 2.1 % (3.0-13.0); NUCLEATED RED BLOOD CELLS 0.5 % (0.0-0.19); PLATELET COUNT (AUTO) 102 K/uL (130-400); RED BLOOD CELL COUNT(AUTO) 2.55 MIL/uL (4.50-6.20); RED CELL DISTRIBUTION WIDTH 15.9 % (11.0-15.5); WHITE BLOOD COUNT (AUTO) 3.8 K/uL (4.8-10.8)
[2019-11-06 04:56] LABS: INR 0.99 (0.85-1.15); PARTIAL THROMBOPLASTIN TIME 35.2 SEC (26.3-35.5); PROTHROMBIN TIME 10.7 SEC (9.6-11.6)
[2019-11-06 05:01] LABS: ALBUMIN 1.4 g/dL (3.5-5.0); BILIRUBIN,TOTAL 1.7 mg/dL (0.2-1.0); CREATININE 3.3 mg/dL (0.5-1.5); MAGNESIUM 2.4 mg/dL (1.80-2.40); PHOSPHORUS 6.5 mg/dL (2.5-4.9); POTASSIUM 4.3 mmol/L (3.5-5.1); TOTAL PROTEIN, SERUM 4.6 g/dL (6.0-8.3)
[2019-11-06 06:10] LABS: ABG BASE EXCESS -0.9 mmol/L (-2.0-3.0); ABG HCO3 19.7 mmol/L (21.0-28.0); ABG OXYGEN SATURATION 97.4 % (95.0-99.0); ABG PCO2 24 mmHg (35-48)
--- NOTE | 2019-11-06 07:15 | NUR ---
COLOSTOMY CARE DONE; CLEANSED WITH SOAP AND WATER; COLOSTOMY BAG/WAFER CHANGED DUE TO LEAKING STOOL; AT BEDSIDE Addendum: 11/06/19 at 1522 by AIDA WALKER RN RN Amended: Links added.
[2019-11-06] MEDS ORDERED: LINEZOLID 600 MG/ISO-OSM 300 ML IV SCH (08:00)
[2019-11-06] MEDS: DOCUSATE NA 100MG/10ML UDCUP PO SCH ×2 (08:49→21:28)
[2019-11-06] MEDS: SENNOSIDES 8.6 MG TABLET PO SCH (08:50)
[2019-11-06] MEDS: THIAMINE HCL 100 MG/ML 2ML VIAL IVP SCH (08:50)
[2019-11-06] MEDS: ARTIFICAL TEARS SOL 15 ML OU SCH ×2 (08:51→21:28)
[2019-11-06] MEDS ORDERED: LEVETIRACETAM 500 MG in SODIUM CHLORIDE 0.9% 100 ML IV SCH (09:00)
[2019-11-06] MEDS: LEVETIRACETAM 500 MG in SODIUM CHLORIDE 0.9% 100 ML IV SCH (09:49)
[2019-11-06] MEDS: PANTOPRAZOLE 40 MG/VIAL IVP SCH (10:05)
[2019-11-06] MEDS: SODIUM CHLORIDE 0.9% 500ML 500 ML IV SCH (10:15)
--- NOTE | 2019-11-06 10:25 | NUR ---
GUNNAR FOLLOW UP Pt with 4+ edema with Dialysis in place 10kg weight gain within 5-6 days I/O as of 11/05/19: 3224.5/375mL Recommend 1500-2000mL fluid restriction Recommend decrease TPN rate to 70mls/hr (1680mLs/84gm protein/1200kcal). Addendum: 11/06/19 at [address] RD Amended: Links added.
[2019-11-06] MEDS: ACETAMINOPHEN 325 MG TAB PO PRN (11:48)
[2019-11-06] MEDS: MICAFUNGIN 100MG+NS 100ML 100 ML IV SCH (12:58)
[2019-11-06] MEDS ORDERED: HEPARIN SODIUM 5000UNIT/ML 1ML VIAL IJ PRN ×2 (14:15)
[2019-11-06] MEDS ORDERED: LIDOCAINE HCL-MPF 1% 2ML VIAL IJ PRN (14:15)
[2019-11-06] MEDS ORDERED: NITROGLYCERIN 0.4 MG SL TAB SL PRN (14:15)
[2019-11-06] MEDS ORDERED: SODIUM CHLORIDE 0.9% 1000ML 1,000 ML IV PRN (14:15)
[2019-11-06] MEDS ORDERED: 0.9% SODIUM CHLORIDE 1000 ML IV BAG IV PRN (14:15)
[2019-11-06] MEDS: ALBUMIN (HUMAN) 25% 100 ML IV PRN ×2 (14:44→18:10)
[2019-11-06] MEDS ORDERED: DIATR MEGLU/DIATRIZOATE SODIUM 30 ML BOTTLE ONE (17:45)
[2019-11-06] MEDS: HEPARIN SODIUM 5000UNIT/ML 1ML VIAL IJ PRN (18:12)
[2019-11-06] MEDS ORDERED: [UNRECOGNIZED DRUG - NUTRITION] IV ONE (18:30)
[2019-11-07] VITALS (35 sets, daily range): BP systolic 95–130; BP diastolic 53–85
[2019-11-07] MEDS: METOCLOPRAMIDE 10 MG/2 ML VIAL IVP SCH ×4 (00:08→16:12)
[2019-11-07] MEDS: MEROPENEM 500 MG VIAL IV SCH ×3 (02:00→18:44)
[2019-11-07 05:20] LABS: HEMATOCRIT 21.1 % (42-54); MEAN CORPUSCULAR HEMOGLOBIN 27.9 pg (27.0-33.0); MEAN CORPUSCULAR HGB CONC 32.7 g/dL (32.0-36.0); MEAN CORPUSCULAR VOLUME 85.4 fL (79-99); NUCLEATED RED BLOOD CELLS 0.8 % (0.0-0.19); PLATELET COUNT (AUTO) 102 K/uL (130-400); RED BLOOD CELL COUNT(AUTO) 2.47 MIL/uL (4.50-6.20); RED CELL DISTRIBUTION WIDTH 15.8 % (11.0-15.5); WHITE BLOOD COUNT (AUTO) 3.8 K/uL (4.8-10.8)
[2019-11-07 05:54] LABS: CREATININE 2.7 mg/dL (0.5-1.5); POTASSIUM 4.2 mmol/L (3.5-5.1)
[2019-11-07 07:10] LABS: HEMATOCRIT 22.1 % (42-54)
[2019-11-07] MEDS: LINEZOLID 600 MG/ISO-OSM 300 ML IV SCH (10:08)
[2019-11-07] MEDS: DOCUSATE NA 100MG/10ML UDCUP PO SCH ×2 (10:08→21:06)
[2019-11-07] MEDS: ARTIFICAL TEARS SOL 15 ML OU SCH ×2 (10:09→21:07)
[2019-11-07] MEDS: LEVETIRACETAM 500 MG in SODIUM CHLORIDE 0.9% 100 ML IV SCH (10:09)
[2019-11-07] MEDS: THIAMINE HCL 100 MG/ML 2ML VIAL IVP SCH (10:09)
[2019-11-07] MEDS: SENNOSIDES 8.6 MG TABLET PO SCH (10:10)
[2019-11-07] MEDS: SODIUM CHLORIDE 0.9% 500ML 500 ML IV SCH (10:12)
[2019-11-07] MEDS: PANTOPRAZOLE 40 MG/VIAL IVP SCH (10:24)
[2019-11-07] MEDS: MICAFUNGIN 100MG+NS 100ML 100 ML IV SCH (11:59)
[2019-11-07] MEDS ORDERED: BUMETANIDE 0.25 MG/ML 4 ML VIAL IM SCH (15:30)
--- NOTE | 2019-11-07 17:19 | NUR ---
Colostomy care done at this time, bag drained and surrounding area cleaned
[2019-11-07] MEDS ORDERED: PHARMACY COMMUNICATION MISC SCH (18:15)
[2019-11-07] MEDS: BUMETANIDE 0.25 MG/ML 10 ML 40 ML IV SCH (21:00)
[2019-11-07] MEDS: MIDODRINE HCL 5 MG TABLET PO SCH (21:06)
[2019-11-07] MEDS: ZYVOX 600 MG TAB PO SCH (21:06)
[2019-11-08] VITALS (31 sets, daily range): BP systolic 101–146; BP diastolic 44–88
[2019-11-08] MEDS: MEROPENEM 500 MG VIAL IV SCH (01:19)
[2019-11-08] MEDS: METOCLOPRAMIDE 10 MG/2 ML VIAL IVP SCH ×4 (01:19→17:27)
[2019-11-08] MEDS: BUMETANIDE 0.25 MG/ML 10 ML 40 ML IV SCH ×2 (01:22→12:39)
[2019-11-08 05:08] LABS: BASOPHILS % (AUTO) 0.2 % (0.0-5.0); EOSINOPHILS % (AUTO) 0.2 % (0.0-8.0); HEMATOCRIT 23.4 % (42-54); LYMPHOCYTES % (AUTO) 3.4 % (21.0-51.0); MEAN CORPUSCULAR HEMOGLOBIN 28.2 pg (27.0-33.0); MEAN CORPUSCULAR HGB CONC 32.9 g/dL (32.0-36.0); MEAN CORPUSCULAR VOLUME 85.7 fL (79-99); MONOCYTES % (AUTO) 2.8 % (3.0-13.0); NEUTROPHILS % (AUTO) 90.4 % (40.0-77.0); PLATELET COUNT (AUTO) 154 K/uL (130-400); RED BLOOD CELL COUNT(AUTO) 2.73 MIL/uL (4.50-6.20); RED CELL DISTRIBUTION WIDTH 15.9 % (11.0-15.5)
[2019-11-08 05:20] LABS: CREATININE 3.6 mg/dL (0.5-1.5); MAGNESIUM 2.2 mg/dL (1.80-2.40); PHOSPHORUS 7.7 mg/dL (2.5-4.9); POTASSIUM 4.6 mmol/L (3.5-5.1)
[2019-11-08] MEDS: ZYVOX 600 MG TAB PO SCH ×2 (05:40→17:27)
[2019-11-08] MEDS: DEXTROSE 50%-WATER 50 ML DISP.SYRIN IV PRN (06:59)
[2019-11-08] MEDS: SENNOSIDES 8.6 MG TABLET PO SCH (08:27)
[2019-11-08] MEDS: DOCUSATE NA 100MG/10ML UDCUP PO SCH ×2 (08:27→20:53)
[2019-11-08] MEDS: MIDODRINE HCL 5 MG TABLET PO SCH ×3 (08:27→20:53)
[2019-11-08] MEDS: ARTIFICAL TEARS SOL 15 ML OU SCH ×2 (09:35→20:54)
[2019-11-08] MEDS: SODIUM CHLORIDE 0.9% 500ML 500 ML IV SCH (10:15)
[2019-11-08] MEDS: HEPARIN SODIUM 5000UNIT/ML 1ML VIAL IJ PRN (11:36)
[2019-11-08] MEDS: LEVETIRACETAM 500 MG in SODIUM CHLORIDE 0.9% 100 ML IV SCH (12:17)
[2019-11-08] MEDS: THIAMINE HCL 100 MG/ML 2ML VIAL IVP SCH (12:18)
[2019-11-08] MEDS: PANTOPRAZOLE 40 MG/VIAL IVP SCH (12:18)
[2019-11-08] MEDS: MICAFUNGIN 100MG+NS 100ML 100 ML IV SCH (12:19)
--- NOTE | 2019-11-08 16:45 | NUR ---
DR SALOMON HERE TO EVALUATE PATIENT AND ORDERED TO EXTUBATE PATIENT. EXTUBATED WITH KARIME ZAYAS DATA SUPPORT SPECIALIST AND JAMAL NGO DATA SUPPORT SPECIALIST AT HIS SIDE AND SUCCESSFULLY EXTUBATED. PATIENT PLACED ON AEROSOL MASK @ 40% WITH CPT AND FREQUENT SUCTIONING BY THE ABOVE MENTIONED DATA SUPPORT SPECIALIST'S. WILL CONTINUE TO MONITOR AND FOLLOW PATIENT CLOSELY. SPOUSE CALLED BACK INTO THE ROOM AND WAS ABLE TO SPEAK WITH PATIENT. PATIENT IS FULLY AWAKE AND BREATHING NORMALLY WITH PHYLUM SUCTIONED NEEDED. Addendum: 11/08/19 at 1811 by TREV ESPAÑA RN RN Amended: Links added.
[2019-11-08] MEDS ORDERED: SODIUM CHLORIDE 3% FOR INHALATION 4 ML/AMP VIAL.NEB IH ONE ×2 (16:53→21:35)
[2019-11-08] MEDS ORDERED: IPRATROPIUM/ALBUTEROL SULFATE 3 ML SOLUTION IH ONE ×2 (16:53→21:34)
[2019-11-08] MEDS: EPOETIN ALFA 10,000 UNIT/ML VIAL SQ SCH (17:37)
[2019-11-08] MEDS ORDERED: SODIUM CHLORIDE FOR INHALATION 3 ML VIAL.NEB. IH ONE (21:35)
--- NOTE | 2019-11-08 23:05 | NUR ---
AVAPS STARTED WITH ORDERED SETTINGS 8ML/KG, RATE 12, EPAP 6, FIO2 .40 AND TOLERATING WELL. Addendum: 11/08/19 at 2330 by ALEIDA MEIERLT Amended: Links added.
[2019-11-09] VITALS (24 sets, daily range): BP systolic 93–136; BP diastolic 46–89
[2019-11-09] MEDS: METOCLOPRAMIDE 10 MG/2 ML VIAL IVP SCH ×4 (00:05→18:15)
[2019-11-09] MEDS: ZYVOX 600 MG TAB PO SCH ×2 (05:06→21:04)
[2019-11-09 05:09] LABS: HEMATOCRIT 23.1 % (42-54); MEAN CORPUSCULAR HEMOGLOBIN 27.9 pg (27.0-33.0); MEAN CORPUSCULAR HGB CONC 32.9 g/dL (32.0-36.0); MEAN CORPUSCULAR VOLUME 84.9 fL (79-99); NUCLEATED RED BLOOD CELLS 0.3 % (0.0-0.19); PLATELET COUNT (AUTO) 213 K/uL (130-400); RED BLOOD CELL COUNT(AUTO) 2.72 MIL/uL (4.50-6.20); RED CELL DISTRIBUTION WIDTH 15.9 % (11.0-15.5); WHITE BLOOD COUNT (AUTO) 5.7 K/uL (4.8-10.8)
[2019-11-09 05:30] LABS: CREATININE 3.4 mg/dL (0.5-1.5); PHOSPHORUS 7.8 mg/dL (2.5-4.9); POTASSIUM 4.3 mmol/L (3.5-5.1)
[2019-11-09] MEDS: DEXTROSE 50%-WATER 50 ML DISP.SYRIN IV PRN ×2 (06:23→16:55)
[2019-11-09] MEDS: BUMETANIDE 0.25 MG/ML 10 ML 40 ML IV SCH ×2 (07:32→20:48)
[2019-11-09] MEDS: PANTOPRAZOLE 40 MG/VIAL IVP SCH (09:09)
[2019-11-09] MEDS: LEVETIRACETAM 500 MG in SODIUM CHLORIDE 0.9% 100 ML IV SCH (09:09)
[2019-11-09] MEDS: MIDODRINE HCL 5 MG TABLET PO SCH ×3 (09:10→20:47)
[2019-11-09] MEDS: DOCUSATE NA 100MG/10ML UDCUP PO SCH ×2 (09:10→20:47)
[2019-11-09] MEDS: SODIUM CHLORIDE 0.9% 500ML 500 ML IV SCH (09:11)
[2019-11-09] MEDS: THIAMINE HCL 100 MG/ML 2ML VIAL IVP SCH (09:12)
[2019-11-09] MEDS: SENNOSIDES 8.6 MG TABLET PO SCH (09:12)
[2019-11-09] MEDS: ARTIFICAL TEARS SOL 15 ML OU SCH ×2 (09:21→20:47)
[2019-11-09] MEDS: IPRATROPIUM/ALBUTEROL SULFATE 3 ML SOLUTION IH SCH ×2 (11:24→18:00)
[2019-11-09] MEDS: SODIUM CHLORIDE 3% FOR INHALATION 4 ML/AMP VIAL.NEB IH SCH ×2 (11:24→18:00)
--- NOTE | 2019-11-09 11:30 | NUR ---
BIPAP BREAK TOLERATED AFTER RESPIRATORY TREATMENT. DEEP SUCTIONING DONE. SECRETIONS REMOVED. PT NODS YES AND NO. VERY WEAK FROM EXTREMITIES RIGHT STRONGER THAN LEFT. NOT ABLE TO GRASP WITH HANDS
[2019-11-09] MEDS: MICAFUNGIN 100MG+NS 100ML 100 ML IV SCH (11:41)
--- NOTE | 2019-11-09 13:40 | NUR ---
RD FOLLOW UP TPN discontinued. Pt tolerating tube feedings. RD recommendation placed in Pt chart. RN notified. Recommend Vital AF 1.2, Goal Feeding rate: 55mls/hr (1584kcal, 99gm Protein) Recommend 1500mL Fluid Restriction secondary to severe edema (Gen/BUE/BFoot 4+/3+/4+ respectively). Flushes: [address] to continue to monitor. Please notify as additional nutrition concerns arise. Thank you. Addendum: 11/09/19 at [address] RD Amended: Links added.
--- NOTE | 2019-11-09 15:45 | NUR ---
DC PLAN GOT AN ORDER FOR LTAC. PATIENT HAD BEEN UNSTABLE. SPOKE TO CHARGE NURSE TO SEE IF THERE HAD BEEN A CHANGE IN CONDITION. NO CHANGES NOTED. SAID WOULD TALK TO DR. PÉREZ WHO WAS GOING BE SEE THE PATIENT AND TO TALK TO DR. PARSONS SINCE HE IS THE PRIMARY. REASON FOR THIS IS THAT FAMILY WILL LIKELY WANT TO TRANSFER TO [facility] IF PATIENT IS STABLE ENOUGH TO TRAVEL TO A LTAC. Addendum: 11/09/19 at 1548 by YANA CHU RN CM Amended: Links added.
--- NOTE | 2019-11-09 16:00 | NUR ---
MD ROUNDS DR SALOMON IN TO SEE PT, WANTS MORE FREQUENT NASOPHRAGEAL SUCTIONING, AND CPT, ASKED FOR WARMER TO CPAP. TO CALL DR LAND RE: STAPLE REMOVAL, AND CALL DR CONTRERAS RE: PEG TUBE PLACEMENT
--- NOTE | 2019-11-09 16:00 | NUR ---
DR LAND OFFICE CALLED BACK
--- NOTE | 2019-11-09 16:06 | NUR ---
WOUND CARE TEAM HERE TO ASSESS COLOSTOMY SITE. RECEIVED MARATHON SKIN PROTECTANT FOR NEXT OSTOMY BAG CHANGE
[2019-11-09] MEDS: METOLAZONE 2.5 MG TABLET PO SCH (16:26)
[2019-11-09] MEDS: ONDANSETRON HCL 4 MG/2 ML VIAL IV PRN (16:26)
--- NOTE | 2019-11-09 17:32 | NUR ---
CLEANSED HEAD AND REMOVED EDVIN TO HEAD WITHOUT INCIDENT PER DR Nixon. SIX ORDER
[2019-11-10] VITALS (32 sets, daily range): BP systolic 94–181; BP diastolic 62–89
[2019-11-10] MEDS: METOCLOPRAMIDE 10 MG/2 ML VIAL IVP SCH ×4 (00:11→18:15)
[2019-11-10] MEDS: BUMETANIDE 0.25 MG/ML 10 ML 40 ML IV SCH ×2 (03:55→09:53)
[2019-11-10 04:18] LABS: BASOPHILS % (AUTO) 0.2 % (0.0-5.0); EOSINOPHILS % (AUTO) 0.2 % (0.0-8.0); HEMATOCRIT 23.9 % (42-54); LYMPHOCYTES % (AUTO) 5.3 % (21.0-51.0); MEAN CORPUSCULAR HEMOGLOBIN 28.1 pg (27.0-33.0); MEAN CORPUSCULAR HGB CONC 32.6 g/dL (32.0-36.0); MONOCYTES % (AUTO) 4.6 % (3.0-13.0); NEUTROPHILS % (AUTO) 87.7 % (40.0-77.0); PLATELET COUNT (AUTO) 254 K/uL (130-400); RED BLOOD CELL COUNT(AUTO) 2.78 MIL/uL (4.50-6.20); RED CELL DISTRIBUTION WIDTH 16.3 % (11.0-15.5); WHITE BLOOD COUNT (AUTO) 5.9 K/uL (4.8-10.8)
[2019-11-10 04:28] LABS: MAGNESIUM 2.2 mg/dL (1.80-2.40); PHOSPHORUS 9.1 mg/dL (2.5-4.9)
[2019-11-10] MEDS: ZYVOX 600 MG TAB PO SCH ×2 (08:32→18:15)
[2019-11-10] MEDS: LEVETIRACETAM 500 MG in SODIUM CHLORIDE 0.9% 100 ML IV SCH (09:23)
[2019-11-10] MEDS: SENNOSIDES 8.6 MG TABLET PO SCH (09:23)
[2019-11-10] MEDS: PANTOPRAZOLE 40 MG/VIAL IVP SCH (09:23)
[2019-11-10] MEDS: THIAMINE HCL 100 MG/ML 2ML VIAL IVP SCH (09:24)
[2019-11-10] MEDS: MIDODRINE HCL 5 MG TABLET PO SCH ×3 (09:24→20:24)
[2019-11-10] MEDS: DOCUSATE NA 100MG/10ML UDCUP PO SCH ×2 (09:24→20:24)
[2019-11-10] MEDS: METOLAZONE 2.5 MG TABLET PO SCH (09:24)
[2019-11-10] MEDS: SODIUM CHLORIDE 0.9% 500ML 500 ML IV SCH (09:25)
[2019-11-10] MEDS: ARTIFICAL TEARS SOL 15 ML OU SCH ×2 (09:25→20:25)
[2019-11-10] MEDS: ALBUMIN (HUMAN) 25% 100 ML IV PRN (11:03)
[2019-11-10] MEDS: HEPARIN SODIUM 5000UNIT/ML 1ML VIAL IJ PRN (11:06)
--- NOTE | 2019-11-10 12:21 | NUR ---
HOLD EVALUATION. SPECTROGRAPHIC ANALYST COORDINATED WITH NURSE BARAKAT. Pt CURRENTLY ON BIPAP. PER NURSE, Pt NOT TOLERATING BEING OFF OF THE BIPAP FOR LONG BEFORE DROP IN OXYGEN. Pt AT HIGH RISK FOR ASPIRATION AT THIS TIME. SPECTROGRAPHIC ANALYST WILL CONTINUE TO FOLLOW Pt FOR SKILLED ST EVALUATION WHEN Pt TOLERATES BEING OFF OF BIPAP FOR 45-60 MINUTES TO TOLERATE P.O. INTAKE. Addendum: 11/10/19 at 1229 by KASSIE MICHAUD [facility] Amended: Links added. Addendum: 11/10/19 at 1237 by KASSIE MICHAUD [facility] SPECTROGRAPHIC ANALYST COORDINATED WITH NURSE VILLAVICENCIO (TANYA BARAKAT).
[2019-11-10] MEDS: MICAFUNGIN 100MG+NS 100ML 100 ML IV SCH (13:08)
[2019-11-10] MEDS: ACETAMINOPHEN 325 MG TAB PO PRN (15:50)
[2019-11-10] MEDS: BUMETANIDE 0.25 MG/ML 4 ML VIAL IVP SCH (20:25)
[2019-11-10] MEDS: SIMETHICONE 80 MG TAB.CHEW PO PRN (22:56)
[2019-11-11] VITALS (22 sets, daily range): BP systolic 110–152; BP diastolic 65–92
[2019-11-11] MEDS: METOCLOPRAMIDE 10 MG/2 ML VIAL IVP SCH ×4 (00:24→17:43)
[2019-11-11 03:54] LABS: HEMATOCRIT 22.7 % (42-54); MEAN CORPUSCULAR HEMOGLOBIN 28.2 pg (27.0-33.0); MEAN CORPUSCULAR HGB CONC 32.6 g/dL (32.0-36.0); MEAN CORPUSCULAR VOLUME 86.6 fL (79-99); PLATELET COUNT (AUTO) 244 K/uL (130-400); RED BLOOD CELL COUNT(AUTO) 2.62 MIL/uL (4.50-6.20); RED CELL DISTRIBUTION WIDTH 16.2 % (11.0-15.5)
[2019-11-11 04:08] LABS: ALBUMIN 1.8 g/dL (3.5-5.0); CREATININE 3.3 mg/dL (0.5-1.5); POTASSIUM 3.6 mmol/L (3.5-5.1); TOTAL PROTEIN, SERUM 5.3 g/dL (6.0-8.3)
[2019-11-11 04:13] LABS: BAND NEUTROPHILS % (MANUAL) 4 % (0-2); LYMPHOCYTES % (MANUAL) 4 % (22-44); MAN.DIFF COMMENT-IMPRESSION MANUAL DIFFERENTIAL; MONOCYTES % (MANUAL) 4 % (2-9); PLATELET MORPHOLOGY COMMENT ADEQUATE; SEGMENTED NEUTROPHILS % 88 % (40-70)
[2019-11-11] MEDS: ZYVOX 600 MG TAB PO SCH ×2 (05:15→17:43)
[2019-11-11] MEDS: BUMETANIDE 0.25 MG/ML 4 ML VIAL IVP SCH ×2 (08:36→21:32)
[2019-11-11] MEDS: LEVETIRACETAM 500 MG in SODIUM CHLORIDE 0.9% 100 ML IV SCH (08:36)
[2019-11-11] MEDS: MIDODRINE HCL 5 MG TABLET PO SCH (08:37)
[2019-11-11] MEDS: SENNOSIDES 8.6 MG TABLET PO SCH (08:37)
[2019-11-11] MEDS: PANTOPRAZOLE 40 MG/VIAL IVP SCH (08:37)
[2019-11-11] MEDS: METOLAZONE 2.5 MG TABLET PO SCH (08:38)
[2019-11-11] MEDS: SIMETHICONE 80 MG TAB.CHEW PO PRN (08:39)
[2019-11-11] MEDS: ARTIFICAL TEARS SOL 15 ML OU SCH ×2 (08:40→21:35)
[2019-11-11] MEDS: DOCUSATE NA 100MG/10ML UDCUP PO SCH ×2 (08:40→21:34)
[2019-11-11] MEDS: THIAMINE HCL 100 MG/ML 2ML VIAL IVP SCH (08:40)
[2019-11-11] MEDS: SODIUM CHLORIDE 0.9% 500ML 500 ML IV SCH (10:15)
--- NOTE | 2019-11-11 11:20 | NUR ---
DR GALLEGOS PRESENT AT NURSES STATDELFINOMMD MADE AWARE ABOUT MACERATED TISSUE NOTED AROUND COLOSTOMY AND REDNESS NOTED AROUND COLOSTOMY SITE. MD STATED HE'LL ASK DR CONTRERAS TO EVALUATE TOMORROW
[2019-11-11] MEDS: MICAFUNGIN 100MG+NS 100ML 100 ML IV SCH (11:56)
--- NOTE | 2019-11-11 12:40 | NUR ---
DR MARTINEZ AT BEDSIDE TO ASSESS PATIENT
--- NOTE | 2019-11-11 18:00 | NUR ---
DISCONTINUED CENTRAL LINE TO RT IJ, ORDERED PER DR SALOMON. CATHETER INTACT, CATHETER TIP SENT TO THE LAB.
[2019-11-12] VITALS (21 sets, daily range): BP systolic 119–162; BP diastolic 79–98
[2019-11-12] MEDS: METOCLOPRAMIDE 10 MG/2 ML VIAL IVP SCH ×4 (00:33→18:33)
[2019-11-12 06:00] LABS: BASOPHILS % (AUTO) 0.3 % (0.0-5.0); EOSINOPHILS % (AUTO) 0.3 % (0.0-8.0); HEMATOCRIT 30.3 % (42-54); LYMPHOCYTES % (AUTO) 12.6 % (21.0-51.0); MEAN CORPUSCULAR HEMOGLOBIN 27.3 pg (27.0-33.0); MEAN CORPUSCULAR VOLUME 88.1 fL (79-99); MONOCYTES % (AUTO) 6.9 % (3.0-13.0); NEUTROPHILS % (AUTO) 78.2 % (40.0-77.0); PLATELET COUNT (AUTO) 307 K/uL (130-400); RED BLOOD CELL COUNT(AUTO) 3.44 MIL/uL (4.50-6.20); RED CELL DISTRIBUTION WIDTH 16.3 % (11.0-15.5); WHITE BLOOD COUNT (AUTO) 3.5 K/uL (4.8-10.8)
[2019-11-12 06:10] LABS: CREATININE 3.9 mg/dL (0.5-1.5); MAGNESIUM 2.2 mg/dL (1.80-2.40); POTASSIUM 4.2 mmol/L (3.5-5.1)
[2019-11-12] MEDS: ZYVOX 600 MG TAB PO SCH ×2 (06:21→18:33)
[2019-11-12] MEDS: LEVETIRACETAM 500 MG in SODIUM CHLORIDE 0.9% 100 ML IV SCH (08:29)
[2019-11-12] MEDS: DOCUSATE NA 100MG/10ML UDCUP PO SCH ×2 (08:29→21:06)
[2019-11-12] MEDS: SENNOSIDES 8.6 MG TABLET PO SCH (08:30)
[2019-11-12] MEDS: BUMETANIDE 0.25 MG/ML 4 ML VIAL IVP SCH ×2 (08:30→21:06)
[2019-11-12] MEDS: PANTOPRAZOLE 40 MG/VIAL IVP SCH (08:30)
[2019-11-12] MEDS: THIAMINE HCL 100 MG/ML 2ML VIAL IVP SCH (08:30)
[2019-11-12] MEDS: METOLAZONE 2.5 MG TABLET PO SCH (08:30)
[2019-11-12] MEDS: ARTIFICAL TEARS SOL 15 ML OU SCH ×2 (08:31→21:07)
[2019-11-12] MEDS: SODIUM CHLORIDE 0.9% 500ML 500 ML IV SCH (10:15)
--- NOTE | 2019-11-12 12:05 | NUR ---
PATIENT TAKEN TO OR PATIENT TAKEN TO OR AT THIS TIME BY OR TEAM. PATIENT VITALS STABLE, ON O2 1L NC.
[2019-11-12] MEDS: MICAFUNGIN 100MG+NS 100ML 100 ML IV SCH (12:15)
--- NOTE | 2019-11-12 13:00 | NUR ---
DR. VIVIANA MICHELLE AT BEDSIDE TO SEE AND EVALUATE PATIENT. HE ORDERED LABS FOR THE MORNING AND DIALYSIS FOR TOMORROW.
--- NOTE | 2019-11-12 13:10 | NUR ---
DR. OCTAVIO [place] AT BEDSIDE TO SEE AND EVALUATE PATIENT. HE WAS NOTIFIED OF PATIENT'S SKIN EXCORIATION AROUND COLOSTOMY BAG PLACEMENT. NO NEW ORDERS GIVEN AT THIS TIME.
--- NOTE | 2019-11-12 13:40 | NUR ---
DR. ISSA PARSONS AT BEDSIDE TO SEE AND EVALUATE PATIENT. HE WAS MADE AWARE OF DR. CONTRERAS REQUEST FOR SWALLOW EVAL BEFORE PEG TUBE PLACEMENT. HE SAW TAPE EXCORIATION FROM COLOSTOMY BAG PLACEMENT. NO NEW ORDERS GIVEN AT THIS TIME.
--- NOTE | 2019-11-12 14:50 | NUR ---
PATIENT ARRIVED BACK IN ROOM FROM OR AT THIS TIME. Addendum: 11/12/19 at 1509 by WANDA AVELAR RN WRONG PATIENT!
--- NOTE | 2019-11-12 19:15 | NUR ---
Dr. Finn Rounded on patient at this time.
[2019-11-13] VITALS (20 sets, daily range): BP systolic 91–151; BP diastolic 48–96
[2019-11-13] MEDS: METOCLOPRAMIDE 10 MG/2 ML VIAL IVP SCH ×4 (00:24→20:02)
[2019-11-13 03:47] LABS: BASOPHILS % (AUTO) 0.3 % (0.0-5.0); EOSINOPHILS % (AUTO) 0.6 % (0.0-8.0); HEMATOCRIT 28.2 % (42-54); LYMPHOCYTES % (AUTO) 11.8 % (21.0-51.0); MEAN CORPUSCULAR HEMOGLOBIN 27.9 pg (27.0-33.0); MEAN CORPUSCULAR HGB CONC 31.9 g/dL (32.0-36.0); MEAN CORPUSCULAR VOLUME 87.3 fL (79-99); NEUTROPHILS % (AUTO) 74.9 % (40.0-77.0); NUCLEATED RED BLOOD CELLS 0.6 % (0.0-0.19); PLATELET COUNT (AUTO) 253 K/uL (130-400); RED BLOOD CELL COUNT(AUTO) 3.23 MIL/uL (4.50-6.20); WHITE BLOOD COUNT (AUTO) 3.6 K/uL (4.8-10.8)
[2019-11-13 04:29] LABS: ALANINE AMINOTRANSFERASE 31 U/L (12-78); ALBUMIN 1.8 g/dL (3.5-5.0); ASPARTATE AMINOTRANSFERASE 58 U/L (10-37); BILIRUBIN,TOTAL 0.9 mg/dL (0.2-1.0); CARBON DIOXIDE 22 mmol/L (21-32); CHLORIDE 102 mmol/L (101-111); CREATININE 4.4 mg/dL (0.5-1.5); GLOMERULAR FILTR. RATE CALC 14 mL/min (>60); GLUCOSE,RANDOM 114 mg/dL (70-105); POTASSIUM 3.8 mmol/L (3.5-5.1); SODIUM SERUM 142 mmol/L (136-145); TOTAL PROTEIN, SERUM 6.2 g/dL (6.0-8.3)
[2019-11-13 04:41] LABS: UREA NITROGEN, BLOOD 91 mg/dL (7-18)
[2019-11-13] MEDS: ZYVOX 600 MG TAB PO SCH ×2 (06:15→20:02)
--- NOTE | 2019-11-13 09:00 | NUR ---
PT WAS ASSESSED BY SPEECH THERAPIST AND PT WAS UNABLE TO FOLLOW ANY INSTRUCTIONS OR VERBALIZED ANY ANSWERS TO HER QUESTIONS.
[2019-11-13] MEDS: BUMETANIDE 0.25 MG/ML 4 ML VIAL IVP SCH ×2 (09:02→20:03)
[2019-11-13] MEDS: PANTOPRAZOLE 40 MG/VIAL IVP SCH (09:02)
[2019-11-13] MEDS: METOLAZONE 2.5 MG TABLET PO SCH (09:02)
[2019-11-13] MEDS: THIAMINE HCL 100 MG/ML 2ML VIAL IVP SCH (09:03)
[2019-11-13] MEDS: LEVETIRACETAM 500 MG in SODIUM CHLORIDE 0.9% 100 ML IV SCH (09:06)
[2019-11-13] MEDS: SENNOSIDES 8.6 MG TABLET PO SCH (09:12)
[2019-11-13] MEDS: ARTIFICAL TEARS SOL 15 ML OU SCH ×2 (09:12→20:05)
[2019-11-13] MEDS: DOCUSATE NA 100MG/10ML UDCUP PO SCH (09:12)
--- NOTE | 2019-11-13 09:47 | NUR ---
DIALYSIS NURSE HERE AND WILL BE STARTING DIALYSIS. NOT HERE YET THIS MORNING.
[2019-11-13] MEDS: SODIUM CHLORIDE 0.9% 500ML 500 ML IV SCH (10:15)
--- NOTE | 2019-11-13 11:36 | NUR ---
RD FOLLOW UP NOTE DIALYSIS TO BE INITIATED TODAY, S/P EXTUBATION. PT TOLERATING CURRENT TUBE FEEDING AT 35MLS/HR. NOT MEETING NUTRITIONAL NEEDS. RECOMMEND TO CONTINUE TO ADVANCE TUBE FEEDINGS TO GOAL RATE (55MLS/HR) TOLERATED. RD TO CONTINUE TO MONITOR. PLEASE NOTIFY ADDITIONAL NUTRITION CONCERNS ARISE. THANK YOU. Addendum: 11/13/19 at [address] RD Amended: Links added.
[2019-11-13] MEDS: MICAFUNGIN 100MG+NS 100ML 100 ML IV SCH (12:00)
--- NOTE | 2019-11-13 12:18 | NUR ---
DYSPHAGIA NADER ARAUZ. SEVERE ORAL DYSPHAGIA. Pt NONVERBAL AND UNABLE TO FOLLOW SIMPLE COMMANDS. RECOMMEND SURGEON PARTNER ALTERNATE MEANS OF NUTRITION/HYDRATION AT THIS TIME. Addendum: 11/13/[address] ELIZA RHOADES Amended: Links added.
--- NOTE | 2019-11-13 15:45 | NUR ---
DR. GALLEGOS HERE AND SPOKE WITH ABOUT PEG AND STATED TO SCHEDULE IT IN THE MORNING. TRIED SCHEDULING THE PEG AND UNABLE TO SCHEDULE DUE TO A DEFINITE TIME NEEDED. CALLED DR. GALLEGOS'S OFFICE AND ADVISED OF SCHEDULING NEEDING THE TIME TO SCHEDULE PEG.
--- NOTE | 2019-11-13 15:45 | NUR ---
DC PLAN SPOKE TO DR. PARSONS FROM HIS PERSPECTIVE PATIENT CAN TRANSFER TO LTAC IN [place] ONCE PEG PLACED JUST WANTED TO CONFIRM WITH HAND CROCHETER DR. MAE. PATIENT DID NOT PASS SPEECH EVAL RECOMMENDING PEG. SPOKE TO SAID WOULD PREFER TO GO TO [place]. EXPLAINED THAT I DID CHECK [facility] AND THEY CAN TAKE PATIENT WITH HIGH AIMEE O2. SINCE THEY WOULD BE GOING TO [place] WOULD HAVE TO PRIVATE PAY AND IT WOULD BE AROUND 5K. FOUND AN LTAC NEAR PATIENT HOME IN [facility]. [phone]. SPOKE TO REP SAID THEY ARE AN LTAC SEND FAX TO [phone] AND IT WOULD BE ASSIGNED TO A CORDINATOR. ADDRESS [place] [address] [place] [id number]. JEANA SIGNED BY SPOUSE. SAID CHILDREN FOUND [facility]. EXPLAINED ABOUT [facility] AND THAT THEY CAN MAKE DOES ARRANGEMENTS IF THEY CHOOSE. Addendum: 11/13/19 at 1551 by YANA CHU RN CM Amended: Links added.
--- NOTE | 2019-11-13 16:30 | NUR ---
PT WAS PLACED AT 15 LITERS AND WILL MONITOR HIS SATURATION.
--- NOTE | 2019-11-13 16:50 | NUR ---
DC JOSE ARMANDO SPOKE TO WHO GAVE JEANA FOR [facility] IN [place]. THEN CALLED ASKING FOR ME TO TALK TO DAUGHTER REGARDING TRANSPORT. SPOKE TO DAUGHTER GAVE INFO REGARDING HOSPITAL AND REASON THAT THEY WOULD HAVE TO SELF PAY. SAID TO LET THEM TALK TO FACILITY. CALLED BACK SAID THEY THOUGHT WOULD BE ABLE TO VISIT. EXPLAINED THAT DUE TO COVID NO FACILITY IS ALLOWING VISITATIONS. SAID WILL CONTINUE TO CHECK ASKED FOR NUMBER TO [facility]. GAVE HER THE NUMBER GOING TO SEE HOW MUCH IT WOULD BE AND IF THEY CAN DO PAYMENT PLAN. IF NOT THEY MIGHT GO WITH [facility]. Addendum: 11/13/19 at 1656 by YANA CHU RN CM Amended: Links added.
[2019-11-13] MEDS: EPOETIN ALFA 10,000 UNIT/ML VIAL SQ SCH (21:38)
[2019-11-14] VITALS (29 sets, daily range): BP systolic 88–138; BP diastolic 57–96
[2019-11-14] MEDS: METOCLOPRAMIDE 10 MG/2 ML VIAL IVP SCH ×5 (01:26→23:30)
[2019-11-14 03:52] LABS: HEMATOCRIT 25.1 % (42-54); MEAN CORPUSCULAR HEMOGLOBIN 27.6 pg (27.0-33.0); MEAN CORPUSCULAR HGB CONC 31.1 g/dL (32.0-36.0); MEAN CORPUSCULAR VOLUME 88.7 fL (79-99); PLATELET COUNT (AUTO) 255 K/uL (130-400); RED BLOOD CELL COUNT(AUTO) 2.83 MIL/uL (4.50-6.20); WHITE BLOOD COUNT (AUTO) 4.1 K/uL (4.8-10.8)
[2019-11-14 04:08] LABS: CREATININE 3.6 mg/dL (0.5-1.5); POTASSIUM 3.5 mmol/L (3.5-5.1)
[2019-11-14 04:10] LABS: INR 1.27 (0.85-1.15); PARTIAL THROMBOPLASTIN TIME 33.7 SEC (26.3-35.5); PROTHROMBIN TIME 13.6 SEC (9.6-11.6)
[2019-11-14] MEDS: ZYVOX 600 MG TAB PO SCH ×2 (06:33→18:07)
[2019-11-14] MEDS: BUMETANIDE 0.25 MG/ML 4 ML VIAL IVP SCH ×2 (08:40→20:58)
[2019-11-14] MEDS: THIAMINE HCL 100 MG/ML 2ML VIAL IVP SCH (08:40)
[2019-11-14] MEDS: PANTOPRAZOLE 40 MG/VIAL IVP SCH (08:40)
[2019-11-14] MEDS: LEVETIRACETAM 500 MG in SODIUM CHLORIDE 0.9% 100 ML IV SCH (08:41)
[2019-11-14] MEDS: ARTIFICAL TEARS SOL 15 ML OU SCH ×2 (08:42→20:58)
[2019-11-14] MEDS: METOLAZONE 2.5 MG TABLET PO SCH ×2 (08:53→13:36)
[2019-11-14] MEDS ORDERED: PROPOFOL 10 MG/ML 20ML VIAL IV ONE (09:23)
[2019-11-14] MEDS ORDERED: LIDOCAINE HCL 1% 20 ML VIAL ONE (09:23)
[2019-11-14] MEDS ORDERED: PHENYLEPHRINE HCL 10 MG/ML 1ML VIAL IV ONE (09:24)
[2019-11-14] MEDS ORDERED: EPINEPHRINE 1 MG/ML AMPULE ONE (09:24)
--- NOTE | 2019-11-14 09:40 | NUR ---
EGD/PEG IN PROGRESS-DR GALLEGOS AT BEDSIDE...PLEASE REFER TO ANESTHESIA RECORD/GI NOTES
--- NOTE | 2019-11-14 09:58 | NUR ---
PEG COMPLETED- RUQ
[2019-11-14] MEDS: SODIUM CHLORIDE 0.9% 500ML 500 ML IV SCH (10:15)
--- NOTE | 2019-11-14 12:20 | NUR ---
CM NOTE/CALLED SPOUSE SPOUSE CALLED ON PHONE, ASHOK GENAO [phone]. CALL MADE REGARDING IF DECISION MADE REGARDING DISPOSITION. LT[facility] VS LTAC IN [place]. PER , FAMILY STILL DECIDING AND WILL LET ME KNOW. PER , ALSO WANTS TO INCLUDE PATIENTS OPINION IN DECISION. PER , D/T PATIENT IN PROCEDURE TODAY, HAS NOT TALKED TO HIM. PER NURSE, PATIENT HAD PEG PROCEDURE TODAY BUT BACK IN ROOM OF NOW. MADE AWARE PATIENT IS DROWSY PER NURSE REPORT. PER , WILL CALL PATIENT AND OTHER FAMILY INVOLVED IN DECISION. AWARE OF LTAC IN [facility] IN [place]. CM TO FOLLOW UP.
--- NOTE | 2019-11-14 12:25 | NUR ---
CM NOTE/MESSAGE FOR NURSE PER DR. PARSONS, WANTS TO KNOW IF PATIENT CLEARED FOR TRAVEL D/T HIGH FLOW NC. PER DR. PARSONS, NEED CLEARANCE FOR TRAVEL FROM DR. ANGELES. SAUD TO GIVE MESSAGE TO PRIMARY NURSE, QUINCY JOHN. PER SAUD, PENDING DR. ANGELES TO ROUND. NURSE TO GIVE MESSAGE, CM TO FOLLOW UP.
[2019-11-14] MEDS: MICAFUNGIN 100MG+NS 100ML 100 ML IV SCH (12:55)
[2019-11-14 20:17] LABS: ABG BASE EXCESS -4.5 mmol/L (-2.0-3.0); ABG HCO3 17.5 mmol/L (21.0-28.0); ABG OXYGEN SATURATION 97.8 % (95.0-99.0); ABG PCO2 26 mmHg (35-48)
[2019-11-14] MEDS: ACETAMINOPHEN 325 MG TAB PO PRN (20:59)
[2019-11-15] VITALS (29 sets, daily range): BP systolic 75–179; BP diastolic 53–118
[2019-11-15 03:57] LABS: BASOPHILS % (AUTO) 0.6 % (0.0-5.0); EOSINOPHILS % (AUTO) 0.4 % (0.0-8.0); HEMATOCRIT 25.4 % (42-54); LYMPHOCYTES % (AUTO) 12.5 % (21.0-51.0); MEAN CORPUSCULAR HEMOGLOBIN 27.3 pg (27.0-33.0); MEAN CORPUSCULAR HGB CONC 31.1 g/dL (32.0-36.0); MEAN CORPUSCULAR VOLUME 87.9 fL (79-99); MONOCYTES % (AUTO) 12.5 % (3.0-13.0); NEUTROPHILS % (AUTO) 71.7 % (40.0-77.0); NUCLEATED RED BLOOD CELLS 0.6 % (0.0-0.19); PLATELET COUNT (AUTO) 279 K/uL (130-400); RED BLOOD CELL COUNT(AUTO) 2.89 MIL/uL (4.50-6.20); RED CELL DISTRIBUTION WIDTH 15.9 % (11.0-15.5); WHITE BLOOD COUNT (AUTO) 5.3 K/uL (4.8-10.8)
[2019-11-15 04:36] LABS: CREATININE 4.9 mg/dL (0.5-1.5); MAGNESIUM 2.2 mg/dL (1.80-2.40); PHOSPHORUS 8.5 mg/dL (2.5-4.9); POTASSIUM 3.6 mmol/L (3.5-5.1)
[2019-11-15] MEDS: ONDANSETRON HCL 4 MG/2 ML VIAL IV PRN (04:55)
[2019-11-15] MEDS ORDERED: GUAIFENESIN-DM 200/20 MG 10 ML PO PRN (05:15)
[2019-11-15] MEDS: METOCLOPRAMIDE 10 MG/2 ML VIAL IVP SCH ×3 (05:26→17:22)
[2019-11-15] MEDS: ZYVOX 600 MG TAB PO SCH ×2 (05:26→17:33)
[2019-11-15] MEDS: ALBUMIN (HUMAN) 25% 100 ML IV PRN (08:48)
[2019-11-15] MEDS: BUMETANIDE 0.25 MG/ML 4 ML VIAL IVP SCH (08:51)
[2019-11-15] MEDS: METOLAZONE 2.5 MG TABLET PO SCH (08:51)
[2019-11-15] MEDS: ARTIFICAL TEARS SOL 15 ML OU SCH ×2 (08:52→21:29)
--- NOTE | 2019-11-15 08:55 | NUR ---
HEMODIALYSIS IN PROGRESS
[2019-11-15] MEDS ORDERED: ACETAMINOPHEN ELIXIR 650 MG/20.3 ML UDCUP PEG PRN (11:15)
--- NOTE | 2019-11-15 11:17 | NUR ---
TOLERATING HEMODIALYSIS. PT HAS DIFFICULTY CLEARING HIS ORAL PHARYNGEAL SECRETIONS. I HAVE HAD TO DO ORAL PHARYNGEAL SUCTIONING FREQUENTLY. I HAVE NOTED THAT HIS NOSTRILS ARE SWOLLEN AND BLEEDING. HE CANNOT EXPECTORATE HIS SECRETIONS WITHOUT SUCTIONING. HE HAS A COUGH. I WILL TRY TO ONLY PERFORM ORAL SUCTIONING TO PREVENT ANYMORE IRRITATION TO HIS NASOPHARYNX
--- NOTE | 2019-11-15 11:54 | NUR ---
PT DECLINING- O2 SATS 87-88% TACHYPNEIC UNABLE TO CLEAR AIRWAY ON HIS OWN. HD FINISHED UNABLE TO PULL DUE TO LOW BP'S. TACHYCARDIA RATE OF 132. I CALLED DR ANGELES AND WE WILL ATTEMPT BIPAP.
[2019-11-15] MEDS: THIAMINE HCL 100 MG/ML 2ML VIAL IVP SCH (11:57)
[2019-11-15] MEDS: LEVETIRACETAM 500 MG in SODIUM CHLORIDE 0.9% 100 ML IV SCH (11:57)
[2019-11-15] MEDS: PANTOPRAZOLE 40 MG/VIAL IVP SCH (11:58)
[2019-11-15] MEDS: MICAFUNGIN 100MG+NS 100ML 100 ML IV SCH (11:58)
[2019-11-15] MEDS ORDERED: MEROPENEM 1 GM VIAL IVP SCH (12:15)
[2019-11-15 12:31] LABS: ABG BASE EXCESS -0.6 mmol/L (-2.0-3.0); ABG HCO3 19.9 mmol/L (21.0-28.0); ABG OXYGEN SATURATION 90.8 % (95.0-99.0); ABG PCO2 24 mmHg (35-48)
--- NOTE | 2019-11-15 13:00 | NUR ---
INTUBATION OK-PT EXPRESSES WISH TO HAVE PT INTUBATED TO KEEP HIM COMFORTABLE AND SAFE.
[2019-11-15] MEDS: NOREPINEPHRINE BITARTRATE 8 MG in SODIUM CHLORIDE 0.9% 250 ML IV SCH (13:12)
[2019-11-15] MEDS ORDERED: FENTANYL CITRATE PF 50 MCG/1 ML 2ML VIAL ONE (13:24)
--- NOTE | 2019-11-15 13:29 | NUR ---
DC PLAN VISITED WITH PATIENT AND SPOUSE. SPOUSE SAID THAT THEY WENT AHEAD WITH GOING TO [place]. THEY MADE ARRANGEMENTS WITH [facility] FOR EMS. THEY ARE AWARE OF THE SCRUGGS TO TRANSFER TO [place]. INFO SENT TO [facility]. SPOKE TO YRIS [phone] REP SAID THEY RECEIVED PACKET. IT IS VERY LARGE SO IT WILL TAKE SOME TIME TO GO THROUGH IT ALL. THEY ARE WORKING ON IT. WILL CALL ME IF THEY HAVE ANY QUESTIONS. Addendum: 11/15/19 at 1340 by YANA CHU RN CM Amended: Links added.
[2019-11-15] MEDS: EPOETIN ALFA 10,000 UNIT/ML VIAL SQ SCH (13:56)
[2019-11-15] MEDS ORDERED: FENTANYL CITRATE PF 0.05 MG/ML 1,000 MCG in SODIUM CHLORIDE 0.9% 100 ML IVPB SCH (14:00)
[2019-11-15] MEDS ORDERED: PROPOFOL 1000 MG/100 ML IV PRN (14:29)
[2019-11-15] MEDS ORDERED: FENTANYL CITRATE PF 50 MCG/1 ML 2ML VIAL IVP SCH (14:31)
[2019-11-15] MEDS: FENTANYL 1000MCG+NS 100ML 100 ML IV SCH (14:50)
--- NOTE | 2019-11-15 16:27 | NUR ---
PT TRANSFERRED TO NEW ICU .1ST FLOOR ICU-1 SPOKE TO AND LET HER KNOW THAT SHE WOULD NO LONGER BE ALLOWED TO STAY WITH PATIENT-SHE UNDERSTOOD-- I ALSO CONFIRMED WITH THAT DNR STATUS IS TO CONTINUE
[2019-11-16] VITALS (33 sets, daily range): BP systolic 85–161; BP diastolic 53–95
[2019-11-16] MEDS: METOCLOPRAMIDE 10 MG/2 ML VIAL IVP SCH ×4 (00:10→18:55)
[2019-11-16] MEDS: FENTANYL 1000MCG+NS 100ML 100 ML IV SCH ×3 (00:18→20:20)
[2019-11-16] MEDS: NOREPINEPHRINE BITARTRATE 8 MG in SODIUM CHLORIDE 0.9% 250 ML IV SCH ×2 (00:24→08:55)
[2019-11-16 04:12] LABS: ABG BASE EXCESS -2.4 mmol/L (-2.0-3.0); ABG HCO3 21.6 mmol/L (21.0-28.0); ABG OXYGEN SATURATION 95.6 % (95.0-99.0); ABG PCO2 36 mmHg (35-48)
[2019-11-16 04:27] LABS: EOSINOPHILS % (AUTO) 0.4 % (0.0-8.0); HEMATOCRIT 25.3 % (42-54); LYMPHOCYTES % (AUTO) 11.6 % (21.0-51.0); MEAN CORPUSCULAR HEMOGLOBIN 27.2 pg (27.0-33.0); MEAN CORPUSCULAR HGB CONC 30.8 g/dL (32.0-36.0); MEAN CORPUSCULAR VOLUME 88.2 fL (79-99); MONOCYTES % (AUTO) 9.8 % (3.0-13.0); NEUTROPHILS % (AUTO) 70.6 % (40.0-77.0); NUCLEATED RED BLOOD CELLS 1.9 % (0.0-0.19); PLATELET COUNT (AUTO) 336 K/uL (130-400); RED BLOOD CELL COUNT(AUTO) 2.87 MIL/uL (4.50-6.20); RED CELL DISTRIBUTION WIDTH 15.9 % (11.0-15.5); WHITE BLOOD COUNT (AUTO) 6.8 K/uL (4.8-10.8)
[2019-11-16 04:48] LABS: ALBUMIN 2.1 g/dL (3.5-5.0); BILIRUBIN,TOTAL 1.4 mg/dL (0.2-1.0); CREATININE 4.3 mg/dL (0.5-1.5); POTASSIUM 4.2 mmol/L (3.5-5.1); TOTAL PROTEIN, SERUM 6.2 g/dL (6.0-8.3)
[2019-11-16 04:50] LABS: INR 1.38 (0.85-1.15); PARTIAL THROMBOPLASTIN TIME 34.8 SEC (26.3-35.5); PROTHROMBIN TIME 14.7 SEC (9.6-11.6)
[2019-11-16] MEDS ORDERED: FENTANYL 1000MCG+NS 100ML 100 ML IV SCH (08:30)
--- NOTE | 2019-11-16 09:00 | NUR ---
Everything is ready at bedside per Dr. Finn's for Trach placement and bronchoscopy. MD aware and as he has been informing us of what he wants at bedside.
[2019-11-16] MEDS: THIAMINE HCL 100 MG/ML 2ML VIAL IVP SCH (09:07)
[2019-11-16] MEDS: ARTIFICAL TEARS SOL 15 ML OU SCH ×2 (09:07→20:20)
[2019-11-16] MEDS: ZYVOX 600 MG TAB PO SCH ×2 (09:19→20:24)
[2019-11-16] MEDS: PANTOPRAZOLE 40 MG/VIAL IVP SCH (09:19)
[2019-11-16] MEDS: LEVETIRACETAM 500 MG in SODIUM CHLORIDE 0.9% 100 ML IV SCH (09:29)
--- NOTE | 2019-11-16 11:00 | NUR ---
cm note spoke to dr Clifton, and setup phone call conference with patient's , regarding dc planning to [facility] [place], was updated onpt condition by md, and also discussed alternative dc plan options, including [facility], states she prefers to have him transferred to an [facility] [place] their home. [facility] in [place], [place], states was quoted $4,500 for transfer via ground ambulance to [facility], but not sure if with Ventilator or not. so md requested this cm to followup on cost, call made to [facility] and spoke to [facility] and states will call me back with johnson quote for transfer via ground ambulance to [facility].
--- NOTE | 2019-11-16 14:03 | NUR ---
RD FOLLOW UP NOTE Pt transferred to [facility] - 1.A. Pt re-intubated as of 11/15/19 as per EMR. Tube feeding in place, current rate Vital AF 1.2 @20mls/hr. Recommend to advance gradually to goal (55mL/hr) as medically feasible. Tube feeding orders previously placed. Pt in critical. Recommend to continue POC. Pt with DNR status. Please notify RD as additional nutrition concerns arise.
--- NOTE | 2019-11-16 15:00 | NUR ---
cm note faxed clinical update to [facility] fax [phone], including Hd notes. updated Shaunna barfield at [facility].
--- NOTE | 2019-11-16 15:30 | NUR ---
Dr Finn has trached patient at this time. Time out was conducted per [facility] protocol. Patient tolerated bedside procedure well, will continue to monitor
[2019-11-16] MEDS ORDERED: LIDOCAINE HCL-MPF 2% 5ML VIAL ONE (15:52)
[2019-11-16] MEDS ORDERED: LIDOCAINE HCL 1% 20 ML VIAL ONE (15:52)
[2019-11-16] MEDS ORDERED: VECURONIUM BROMIDE 10 MG ML IV ONE (15:53)
--- NOTE | 2019-11-16 15:55 | NUR ---
TIME OUT PERFORMED AT THIS TIME, ICU NURSE AT BEDSIDE AND DOCTOR BRIDGETTE, COMMENCED PROCEDURE AT 1604 AND ENDED AT 1615, PT STABLE NO CONCERNS VOICED
[2019-11-16] MEDS ORDERED: VECURONIUM BROMIDE 10 MG ML IV SCH (15:58)
[2019-11-16] MEDS ORDERED: PHARMACY COMMUNICATION MISC SCH (16:00)
[2019-11-16] MEDS ORDERED: EPINEPHRINE 1 MG/ML AMPULE ONE ×2 (16:01)
--- NOTE | 2019-11-16 16:02 | NUR ---
cm note call received from [facility] and states johnson quote is $4,600 for ventilator and 1 drip, via ground ems. to [facility]. call made to pt's and updated. and states that she is ok with that johnson quote and does prefer dc plan to go to [facility] in [facility] when accepted. So, call made to dr Joseph and updated on above. and informed of need for clinical peer to peer needed for [facility] level of care with insurance [employer]. ref#[id number] and can call op4. then they will transfer md to assigned person for peer to peer. also informed that if he wishes insurance gave option for us to provide dr joseph cell phone and they will call him. so, dr joseph provided his cell phone # [phone]. and to request they call him back. Call then made to Lanette Ravi, [employer] JUDGING COACH Clinical Liaison at [facility] [phone] and provided above cell phone, and she states she will provide MD and md information to [facility].
[2019-11-16] MEDS: ACETAMINOPHEN 325 MG TAB PO PRN (16:28)
[2019-11-16] MEDS: MICAFUNGIN 100MG+NS 100ML 100 ML IV SCH (16:31)
[2019-11-16] MEDS: MEROPENEM 500 MG VIAL IVP SCH (20:20)
[2019-11-17] VITALS (24 sets, daily range): BP systolic 90–146; BP diastolic 48–88
[2019-11-17] MEDS: METOCLOPRAMIDE 10 MG/2 ML VIAL IVP SCH ×4 (00:51→17:40)
[2019-11-17] MEDS: FENTANYL 1000MCG+NS 100ML 100 ML IV SCH ×2 (02:24→16:15)
[2019-11-17 03:50] LABS: BASOPHILS % (AUTO) 0.8 % (0.0-5.0); HEMATOCRIT 22.9 % (42-54); LYMPHOCYTES % (AUTO) 9.7 % (21.0-51.0); MEAN CORPUSCULAR HEMOGLOBIN 27.1 pg (27.0-33.0); MEAN CORPUSCULAR HGB CONC 30.1 g/dL (32.0-36.0); MEAN CORPUSCULAR VOLUME 89.8 fL (79-99); MONOCYTES % (AUTO) 9.7 % (3.0-13.0); NEUTROPHILS % (AUTO) 69.3 % (40.0-77.0); PLATELET COUNT (AUTO) 288 K/uL (130-400); RED BLOOD CELL COUNT(AUTO) 2.55 MIL/uL (4.50-6.20); RED CELL DISTRIBUTION WIDTH 16.2 % (11.0-15.5)
[2019-11-17 04:12] LABS: ALBUMIN 1.7 g/dL (3.5-5.0); BILIRUBIN,TOTAL 1.4 mg/dL (0.2-1.0); CREATININE 5.2 mg/dL (0.5-1.5); TOTAL PROTEIN, SERUM 5.6 g/dL (6.0-8.3)
[2019-11-17] MEDS: ARTIFICAL TEARS SOL 15 ML OU SCH ×2 (08:25→20:49)
[2019-11-17] MEDS: MEROPENEM 500 MG VIAL IVP SCH ×2 (08:25→20:48)
[2019-11-17] MEDS: THIAMINE HCL 100 MG/ML 2ML VIAL IVP SCH (08:26)
[2019-11-17] MEDS: ZYVOX 600 MG TAB PO SCH ×2 (08:27→20:48)
[2019-11-17] MEDS: PANTOPRAZOLE 40 MG/VIAL IVP SCH (08:27)
[2019-11-17] MEDS: NOREPINEPHRINE BITARTRATE 8 MG in SODIUM CHLORIDE 0.9% 250 ML IV SCH ×2 (08:38→23:33)
[2019-11-17] MEDS: LEVETIRACETAM 500 MG in SODIUM CHLORIDE 0.9% 100 ML IV SCH (08:38)
[2019-11-17] MEDS: MICAFUNGIN 100MG+NS 100ML 100 ML IV SCH (13:23)
[2019-11-17] MEDS: ACETAMINOPHEN 325 MG TAB PO PRN (15:24)
[2019-11-18] VITALS (24 sets, daily range): BP systolic 99–154; BP diastolic 58–91
[2019-11-18] MEDS: METOCLOPRAMIDE 10 MG/2 ML VIAL IVP SCH ×5 (00:21→23:48)
[2019-11-18 06:08] LABS: BASOPHILS % (AUTO) 0.8 % (0.0-5.0); EOSINOPHILS % (AUTO) 0.5 % (0.0-8.0); HEMATOCRIT 23.3 % (42-54); LYMPHOCYTES % (AUTO) 10.9 % (21.0-51.0); MEAN CORPUSCULAR HEMOGLOBIN 27.1 pg (27.0-33.0); MEAN CORPUSCULAR HGB CONC 30.5 g/dL (32.0-36.0); MEAN CORPUSCULAR VOLUME 88.9 fL (79-99); MONOCYTES % (AUTO) 11.4 % (3.0-13.0); NEUTROPHILS % (AUTO) 64.2 % (40.0-77.0); NUCLEATED RED BLOOD CELLS 2.7 % (0.0-0.19); PLATELET COUNT (AUTO) 259 K/uL (130-400); RED BLOOD CELL COUNT(AUTO) 2.62 MIL/uL (4.50-6.20); RED CELL DISTRIBUTION WIDTH 16.3 % (11.0-15.5); WHITE BLOOD COUNT (AUTO) 7.5 K/uL (4.8-10.8)
[2019-11-18 06:27] LABS: ALBUMIN 1.7 g/dL (3.5-5.0); BILIRUBIN,TOTAL 1.1 mg/dL (0.2-1.0); CREATININE 3.7 mg/dL (0.5-1.5); POTASSIUM 4.1 mmol/L (3.5-5.1); TOTAL PROTEIN, SERUM 6.1 g/dL (6.0-8.3)
[2019-11-18 07:26] LABS: BAND NEUTROPHILS % (MANUAL) 12 % (0-2); EOSINOPHILS % (MANUAL) 1 % (1-6); LYMPHOCYTES % (MANUAL) 6 % (22-44); MAN.DIFF COMMENT-IMPRESSION MANUAL DIFFERENTIAL; MONOCYTES % (MANUAL) 19 % (2-9); PLATELET MORPHOLOGY COMMENT ADEQUATE; SEGMENTED NEUTROPHILS % 62 % (40-70)
[2019-11-18] MEDS: MEROPENEM 500 MG VIAL IVP SCH ×2 (08:21→20:34)
[2019-11-18] MEDS: THIAMINE HCL 100 MG/ML 2ML VIAL IVP SCH (08:21)
[2019-11-18] MEDS: PANTOPRAZOLE 40 MG/VIAL IVP SCH (08:21)
[2019-11-18] MEDS: ZYVOX 600 MG TAB PO SCH ×2 (08:22→20:35)
[2019-11-18] MEDS: ARTIFICAL TEARS SOL 15 ML OU SCH ×2 (08:22→20:35)
[2019-11-18] MEDS: LEVETIRACETAM 500 MG in SODIUM CHLORIDE 0.9% 100 ML IV SCH (08:23)
--- NOTE | 2019-11-18 09:30 | NUR ---
Dr. Davey has been made aware of purulent drainage from midline incision. Orders have been given and followed
--- NOTE | 2019-11-18 10:30 | NUR ---
Dr. Mclaughlin has been made aware of purulent drainage from incision site. Dr. mclaughlin has removed kevin and ordered wet to dry packing over Incision
[2019-11-18] MEDS: MICAFUNGIN 100MG+NS 100ML 100 ML IV SCH (11:56)
[2019-11-18] MEDS: NOREPINEPHRINE BITARTRATE 8 MG in SODIUM CHLORIDE 0.9% 250 ML IV SCH (12:00)
[2019-11-18] MEDS: FENTANYL 1000MCG+NS 100ML 100 ML IV SCH (14:10)
[2019-11-18] MEDS: ACETAMINOPHEN 325 MG TAB PO PRN (16:41)
[2019-11-18] MEDS: LEVETIRACETAM 100 MG/ML 5 ML UDCUP PO SCH (20:35)
[2019-11-19] VITALS (34 sets, daily range): BP systolic 93–200; BP diastolic 46–94
[2019-11-19] MEDS: METOCLOPRAMIDE 10 MG/2 ML VIAL IVP SCH ×3 (06:00→17:14)
[2019-11-19] MEDS: NOREPINEPHRINE BITARTRATE 8 MG in SODIUM CHLORIDE 0.9% 250 ML IV SCH (06:23)
[2019-11-19] MEDS: MEROPENEM 500 MG VIAL IVP SCH ×2 (09:00→20:58)
[2019-11-19] MEDS: THIAMINE HCL 100 MG/ML 2ML VIAL IVP SCH (09:00)
[2019-11-19] MEDS: LEVETIRACETAM 100 MG/ML 5 ML UDCUP PO SCH ×2 (09:01→20:58)
[2019-11-19] MEDS: ARTIFICAL TEARS SOL 15 ML OU SCH ×2 (09:01→21:07)
[2019-11-19] MEDS: ZYVOX 600 MG TAB PO SCH ×2 (09:32→21:07)
[2019-11-19] MEDS: PANTOPRAZOLE 40 MG/VIAL IVP SCH (09:32)
[2019-11-19] MEDS: MICAFUNGIN 100MG+NS 100ML 100 ML IV SCH (11:53)
--- NOTE | 2019-11-19 13:39 | NUR ---
DC PLAN VISITED WITH PATIENT. SPOKE TO YRIS AT [place] SAID ALL THAT IS PENDING IS FOR MD TO CALL FOR PEER TO PEER. HAD GIVEN MD NUMBER FOR THEM TO CALL HIM INSURANCE SAID NO THEY WANT HIM TO CALL OF 11/18. REF #[id number] OPT 4. SENT MESSAGE TO MD. Addendum: 11/19/19 at 1345 by YANA CHU RN CM Amended: Links added.
[2019-11-19] MEDS: SIMETHICONE 80 MG TAB.CHEW PO PRN (14:29)
[2019-11-19] MEDS: MIDODRINE HCL 5 MG TABLET PO SCH ×2 (16:21→20:58)
[2019-11-19] MEDS ORDERED: FENTANYL CITRATE PF 50 MCG/1 ML 2ML VIAL ONE (16:45)
[2019-11-19] MEDS: ACETAMINOPHEN 325 MG TAB PO PRN ×2 (16:51→19:46)
[2019-11-19] MEDS: FENTANYL CITRATE PF 50 MCG/1 ML 2ML VIAL IVP PRN ×2 (19:47→22:09)
[2019-11-19 20:51] LABS: ABG BASE EXCESS -8.1 mmol/L (-2.0-3.0); ABG HCO3 13.4 mmol/L (21.0-28.0); ABG OXYGEN SATURATION 99.9 % (95.0-99.0); ABG PCO2 20 mmHg (35-48)
[2019-11-19] MEDS ORDERED: PROPOFOL 1000 MG/100 ML 100 ML IV ONE (23:06)
[2019-11-19] MEDS ORDERED: FENTANYL 1000MCG+NS 100ML 100 ML ONE (23:08)
[2019-11-19] MEDS ORDERED: FENTANYL CITRATE PF 0.05 MG/ML 1,000 MCG in SODIUM CHLORIDE 0.9% 100 ML IVPB SCH (23:15)
[2019-11-19] MEDS ORDERED: PROPOFOL 1000 MG/100 ML 100 ML IV SCH (23:15)
[2019-11-20] VITALS (36 sets, daily range): BP systolic 82–193; BP diastolic 44–87
[2019-11-20] MEDS: METOCLOPRAMIDE 10 MG/2 ML VIAL IVP SCH ×5 (00:35→23:55)
[2019-11-20 04:10] LABS: ALBUMIN 1.6 g/dL (3.5-5.0); BILIRUBIN,TOTAL 0.7 mg/dL (0.2-1.0); CREATININE 6.1 mg/dL (0.5-1.5); MAGNESIUM 2.4 mg/dL (1.80-2.40); PHOSPHORUS 7.2 mg/dL (2.5-4.9); POTASSIUM 5.1 mmol/L (3.5-5.1); TOTAL PROTEIN, SERUM 5.6 g/dL (6.0-8.3)
[2019-11-20 04:20] LABS: BASOPHILS % (AUTO) 0.2 % (0.0-5.0); EOSINOPHILS % (AUTO) 0.1 % (0.0-8.0); LYMPHOCYTES % (AUTO) 14.9 % (21.0-51.0); MEAN CORPUSCULAR HEMOGLOBIN 28.1 pg (27.0-33.0); MEAN CORPUSCULAR HGB CONC 30.7 g/dL (32.0-36.0); MEAN CORPUSCULAR VOLUME 91.3 fL (79-99); MONOCYTES % (AUTO) 10.2 % (3.0-13.0); NEUTROPHILS % (AUTO) 57.9 % (40.0-77.0); NUCLEATED RED BLOOD CELLS 3.4 % (0.0-0.19); PLATELET COUNT (AUTO) 249 K/uL (130-400); RED BLOOD CELL COUNT(AUTO) 1.96 MIL/uL (4.50-6.20); RED CELL DISTRIBUTION WIDTH 17.2 % (11.0-15.5); WHITE BLOOD COUNT (AUTO) 9.6 K/uL (4.8-10.8)
[2019-11-20 04:24] LABS: HEMATOCRIT 17.9 % (42-54)
[2019-11-20] MEDS ORDERED: FENTANYL 1000MCG+NS 100ML 100 ML ONE ×2 (05:02→19:43)
[2019-11-20] MEDS: MIDODRINE HCL 5 MG TABLET PO SCH ×3 (08:27→20:49)
[2019-11-20] MEDS: PANTOPRAZOLE 40 MG/VIAL IVP SCH (08:27)
[2019-11-20] MEDS: ARTIFICAL TEARS SOL 15 ML OU SCH ×2 (08:27→20:57)
[2019-11-20] MEDS: THIAMINE HCL 100 MG/ML 2ML VIAL IVP SCH (08:27)
[2019-11-20] MEDS: ZYVOX 600 MG TAB PO SCH ×2 (08:27→22:57)
[2019-11-20] MEDS: MEROPENEM 500 MG VIAL IVP SCH ×2 (08:27→20:49)
[2019-11-20] MEDS: LEVETIRACETAM 100 MG/ML 5 ML UDCUP PO SCH ×2 (08:27→20:49)
[2019-11-20] MEDS ORDERED: ALBUMIN (HUMAN) 25% 100 ML IV ONE (08:39)
--- NOTE | 2019-11-20 08:42 | NUR ---
dialysis nurse at bedside.
[2019-11-20 09:14] LABS: ABG BASE EXCESS -4.1 mmol/L (-2.0-3.0); ABG HCO3 18.1 mmol/L (21.0-28.0); ABG OXYGEN SATURATION 97.8 % (95.0-99.0); ABG PCO2 27 mmHg (35-48)
[2019-11-20] MEDS ORDERED: SODIUM CHLORIDE 0.9% 100 ML IV ONE (10:55)
--- NOTE | 2019-11-20 11:37 | NUR ---
WOUND CARE TEAM AT BEDSIDE TO PLACE WOUND VAC ON ABDOMINAL WOUND.
[2019-11-20] MEDS: MICAFUNGIN 100MG+NS 100ML 100 ML IV SCH (12:13)
--- NOTE | 2019-11-20 12:45 | NUR ---
OSTOMY BAG CHANGED BY RN
--- NOTE | 2019-11-20 13:07 | NUR ---
UPDATED ON PTS STATUS. SAYS SHE WANTS PT TO GO TO [facility] INSTEAD OF [facility]
[2019-11-20] MEDS: EPOETIN ALFA 10,000 UNIT/ML VIAL SQ SCH (14:48)
--- NOTE | 2019-11-20 16:20 | NUR ---
CM NOTE/P2P INFORMED DR. PARSONS ABOUT PENDING PEER TO PEER. PER DR. PARSONS, PEER TO PEER DONE YESTERDAY. PER MD, [employer] INSURANCE STATED PATIENT WILL HAVE TO BE HOSPITALIZED FOR 7 DAYS S/P TRACH WHICH WOULD FALL ON 11/24/2019. SHAYY HAMPTON DIRECTOR MADE AWARE.
--- NOTE | 2019-11-20 16:25 | NUR ---
RD UPDATE PT WITH WORSENING RENAL DYSFUNCTION. RECOMMEND MODIFY TUBE FEEDING FORMULA TO NEPRO. RECOMMEND INITIATE NEPRO AT 20MLS/HR FOR FIRST 5 HOURS. INCREASE GRADUALLY DUE TO HIGH CONCENTRATION. INCREASE BY 5 MLS EVERY 5 HOURS TO GOAL OF 45MLS/HR (1944KCAL, 87GM PROTEIN) RECOMMEND FLUSHES: 160MLS [id number] PT WITH ALTERED RENAL LABS (CR 6.1, GFR 10, BUN 126). PT PENDING DIALYSIS. NOTED, TARRY STOOLS. DECREASED BOWEL SOUNDS, DISTENDED, COLOSTOMY IN PLACE, PER EMR. RECOMMENDATIONS TO BE PLACED IN PT CHART, RN TO BE NOTIFIED. Addendum: 11/20/19 at [address] RD Amended: Links added.
[2019-11-20] MEDS: NOREPINEPHRINE BITARTRATE 8 MG in SODIUM CHLORIDE 0.9% 250 ML IV SCH ×2 (16:34→20:59)
[2019-11-20] MEDS: SIMETHICONE 80 MG TAB.CHEW PO PRN (17:55)
[2019-11-20 18:04] LABS: HEMATOCRIT 26.2 % (42-54)
[2019-11-21] VITALS (22 sets, daily range): BP systolic 50–127; BP diastolic 22–78
--- NOTE | 2019-11-21 00:30 | NUR ---
STATUS SINUS TACHY CARDIA NOTED ON MONITOR. RR UP NOW. SATS 98% AT THIS TIME . BP LOWER AND LEVOPHED DRIP TITRATED FOR BP SUPPORT.
--- NOTE | 2019-11-21 01:45 | NUR ---
STATUS HAVING TROUBLE GETTING SATS AT THIS TIME. RT HERE TO DRAW ABGS. HAVING A HARD TIME DUE TO LOW BP.
[2019-11-21 01:49] LABS: ABG BASE EXCESS -19.7 mmol/L (-2.0-3.0); ABG PCO2 16 mmHg (35-48)
--- NOTE | 2019-11-21 02:15 | NUR ---
MD CALL ABG RESULTS BACK AND DR MACIEL CALLED AND INFORMED OF ABGS, TACHYPNEA AND LOW BP. ORDERS RECEIVED AND CARRIED OUT.
--- NOTE | 2019-11-21 03:05 | NUR ---
LAB HERE TO DRAW STAT LABS AND HAVING TROUBLE GETTING THE SAMPLE DUE TO LOW BP. CONTINUE TO TITRATE LEVOPHED FOR BP SUPPORT.
[2019-11-21] MEDS ORDERED: NOREPINEPHRINE 4MG/NS 250ML 250 ML IV ONE (03:14)
[2019-11-21] MEDS ORDERED: NOREPINEPHRINE BITARTRATE 1 MG/1 ML ML IV ONE (03:14)
--- NOTE | 2019-11-21 03:25 | NUR ---
MD CALL BACK AND CALLED TO DR MACIEL. INFORMED OF THE RESULT AND CONTINUES LOW BP WITH LEVOPHED AT 0.1MCG/KG/MIN . ALSO INFORMED THAT COULD NOT DUE CT NOW BECAUSE OF UNSTABLE CONDITION. FURTHER ORDERS RECEIVED AND CARRIED OUT.
[2019-11-21 03:34] LABS: CORRECTED WHITE BLOOD COUNT 27.4 K/uL (4.5-11.0); HEMATOCRIT 22.1 % (42-54); MEAN CORPUSCULAR HEMOGLOBIN 30.2 pg (27.0-33.0); MEAN CORPUSCULAR HGB CONC 31.7 g/dL (32.0-36.0); MEAN CORPUSCULAR VOLUME 95.3 fL (79-99); NUCLEATED RED BLOOD CELLS 5.7 % (0.0-0.19); RED BLOOD CELL COUNT(AUTO) 2.32 MIL/uL (4.50-6.20); RED CELL DISTRIBUTION WIDTH 17.1 % (11.0-15.5)
[2019-11-21 03:35] LABS: POTASSIUM 5.4 mmol/L (3.5-5.1)
[2019-11-21 03:36] LABS: CREATININE 4.5 mg/dL (0.5-1.5)
[2019-11-21] MEDS ORDERED: LACTATED RINGERS 1000ML 2,000 ML IV ONE (03:43)
--- NOTE | 2019-11-21 03:45 | NUR ---
1ST LITER LR BOLUS STARTED PER ORDER. VASOPRESSIN DRIP STARTED AT 0.04UT/HR.
[2019-11-21] MEDS ORDERED: VASOPRESSIN 20 UNITS in SODIUM CHLORIDE 0.9% 100 ML IV SCH (04:00)
[2019-11-21] MEDS ORDERED: LACTATED RINGERS 1000ML 2,000 ML IV SCH (04:00)
--- NOTE | 2019-11-21 04:15 | NUR ---
2ND LITER LR STARTED.
--- NOTE | 2019-11-21 04:35 | NUR ---
MD CALL DR MACIEL CALLED AND INFORMED OF CONTINUED LOW BP DESPITE INTERVENTIONS AND THAT WOULD CALL FAMILY AND INFORM THEM OF HIS STATUS. NO NEW ORDERS RECEIVED.
--- NOTE | 2019-11-21 04:40 | NUR ---
CALL CALLED AND INFORMED OF CHANGE IN STATUS AND CRITICAL CONDITION DESPITE INTERVENTIONS.
--- NOTE | 2019-11-21 05:15 | NUR ---
DAUGHTER FROM [facility] CALLED TO GET INFORMATION OF HER DAD AND QUESTIONS ANSWERED.
[2019-11-21] MEDS ORDERED: DEXTROSE 50%-WATER 25 GM/50 ML VIAL ONE (05:16)
[2019-11-21] MEDS: DEXTROSE 50%-WATER 50 ML DISP.SYRIN IV PRN (05:16)
[2019-11-21] MEDS: METOCLOPRAMIDE 10 MG/2 ML VIAL IVP SCH (05:34)
--- NOTE | 2019-11-21 06:20 | NUR ---
DAVID TURNER HERE TO PRONOUNCE HIM.
--- NOTE | 2019-11-21 06:35 | NUR ---
HENNY CALLED AND NOTIFIED OF .
--- NOTE | 2019-11-21 06:35 | NUR ---
MD CALL DR PARSONS CALLED AND INFORMED OF .
--- NOTE | 2019-11-21 06:50 | NUR ---
[facility] WANDA FROM [facility] CALL[facility] TO SAY THAT THEY WOULD DECLINE HIM DUE TO COVID 19 REGULATIONS.
== END 2019-11-21 06:20 | disposition expired | DRG 3 ==
LOC: EDH 22:09 → EDHIP 23:47 → 2CH 10-20 13:08 → 4CH 10-26 14:12 → 2CV 10-29 01:08 → 2BH 10-29 13:53 → DAHIP 11-15 15:41 → 2AH 11-20 12:05 → DAHIP 11-20 12:10
PROVIDERS: ADMIT Internal Medicine; ATTEND Internal Medicine
PROC: 00C70ZZ Extirpation of Matter from Cerebral Hemisphere, Open Approach (ICD-10-PCS; 2019-10-25)
PROC: 0D1N0Z4 Bypass Sigmoid Colon to Cutaneous, Open Approach (ICD-10-PCS; 2019-10-29)
PROC: 0BH17EZ Insertion of Endotracheal Airway into Trachea, Via Natural or Artificial Opening (ICD-10-PCS; 2019-10-29)
PROC: 0DBN0ZZ Excision of Sigmoid Colon, Open Approach (ICD-10-PCS; principal; 2019-10-29 13:30)
PROC: 5A1955Z Respiratory Ventilation, Greater than 96 Consecutive Hours (ICD-10-PCS; 2019-10-29 13:30)
PROC: 5A1D70Z Performance of Urinary Filtration, Intermittent, Less than 6 Hours Per Day (ICD-10-PCS; 2019-11-01)
PROC: 02HV33Z Insertion of Infusion Device into Superior Vena Cava, Percutaneous Approach (ICD-10-PCS; 2019-11-01)
PROC: B548ZZA Ultrasonography of Superior Vena Cava, Guidance (ICD-10-PCS; 2019-11-01)
PROC: 5A1D70Z Performance of Urinary Filtration, Intermittent, Less than 6 Hours Per Day (ICD-10-PCS; 2019-11-02)
PROC: 5A1D70Z Performance of Urinary Filtration, Intermittent, Less than 6 Hours Per Day (ICD-10-PCS; 2019-11-03)
PROC: 5A1D70Z Performance of Urinary Filtration, Intermittent, Less than 6 Hours Per Day (ICD-10-PCS; 2019-11-05)
PROC: 5A1D70Z Performance of Urinary Filtration, Intermittent, Less than 6 Hours Per Day (ICD-10-PCS; 2019-11-06)
PROC: 5A1D70Z Performance of Urinary Filtration, Intermittent, Less than 6 Hours Per Day (ICD-10-PCS; 2019-11-06)
PROC: 5A09357 Assistance with Respiratory Ventilation, Less than 24 Consecutive Hours, Continuous Positive Airway Pressure (ICD-10-PCS; 2019-11-08)
PROC: 5A1D70Z Performance of Urinary Filtration, Intermittent, Less than 6 Hours Per Day (ICD-10-PCS; 2019-11-08)
PROC: 5A09457 Assistance with Respiratory Ventilation, 24-96 Consecutive Hours, Continuous Positive Airway Pressure (ICD-10-PCS; 2019-11-09)
PROC: 5A1D70Z Performance of Urinary Filtration, Intermittent, Less than 6 Hours Per Day (ICD-10-PCS; 2019-11-10)
PROC: 5A1D70Z Performance of Urinary Filtration, Intermittent, Less than 6 Hours Per Day (ICD-10-PCS; 2019-11-13)
PROC: 0DH63UZ Insertion of Feeding Device into Stomach, Percutaneous Approach (ICD-10-PCS; 2019-11-14)
PROC: 5A1D70Z Performance of Urinary Filtration, Intermittent, Less than 6 Hours Per Day (ICD-10-PCS; 2019-11-15)
PROC: 0B113F4 Bypass Trachea to Cutaneous with Tracheostomy Device, Percutaneous Approach (ICD-10-PCS; 2019-11-16)
PROC: 30233N1 Transfusion of Nonautologous Red Blood Cells into Peripheral Vein, Percutaneous Approach (ICD-10-PCS; 2019-11-16)
PROC: 0T9B70Z Drainage of Bladder with Drainage Device, Via Natural or Artificial Opening (ICD-10-PCS; 2019-11-16)
PROC: 0B918ZZ Drainage of Trachea, Via Natural or Artificial Opening Endoscopic (ICD-10-PCS; 2019-11-16)
PROC: 5A1D70Z Performance of Urinary Filtration, Intermittent, Less than 6 Hours Per Day (ICD-10-PCS; 2019-11-17)
PROC: 5A1D70Z Performance of Urinary Filtration, Intermittent, Less than 6 Hours Per Day (ICD-10-PCS; 2019-11-19)
PROC: 5A1D70Z Performance of Urinary Filtration, Intermittent, Less than 6 Hours Per Day (ICD-10-PCS; 2019-11-20)
DX: I61.1 Nontraumatic intracerebral hemorrhage in hemisphere, cortical (principal); R65.21 Severe sepsis with septic shock; K57.81 Diverticulitis of intestine, part unspecified, with perforation and abscess with bleeding; K65.0 Generalized (acute) peritonitis; N17.0 Acute kidney failure with tubular necrosis; K72.00 Acute and subacute hepatic failure without coma; A41.50 Gram-negative sepsis, unspecified; G93.6 Cerebral edema; J18.9 Pneumonia, unspecified organism; J96.21 Acute and chronic respiratory failure with hypoxia; N18.6 End stage renal disease; C71.9 Malignant neoplasm of brain, unspecified; G81.91 Hemiplegia, unspecified affecting right dominant side; E87.0 Hyperosmolality and hypernatremia; E87.2 Acidosis; G81.94 Hemiplegia, unspecified affecting left nondominant side; G93.40 Encephalopathy, unspecified; I12.0 Hypertensive chronic kidney disease with stage 5 chronic kidney disease or end stage renal disease; J90 Pleural effusion, not elsewhere classified; J98.11 Atelectasis; K56.609 Unspecified intestinal obstruction, unspecified as to partial versus complete obstruction; K56.7 Ileus, unspecified; K83.09 Other cholangitis; N25.81 Secondary hyperparathyroidism of renal origin; N39.0 Urinary tract infection, site not specified; R47.01 Aphasia; T81.41XA Infection following a procedure, superficial incisional surgical site, initial encounter; T81.31XA Disruption of external operation (surgical) wound, not elsewhere classified, initial encounter; C79.9 Secondary malignant neoplasm of unspecified site; C61 Malignant neoplasm of prostate; D49.7 Neoplasm of unspecified behavior of endocrine glands and other parts of nervous system; D64.9 Anemia, unspecified; E87.5 Hyperkalemia; B95.2 Enterococcus as the cause of diseases classified elsewhere; B96.89 Other specified bacterial agents as the cause of diseases classified elsewhere; D32.9 Benign neoplasm of meninges, unspecified; E11.22 Type 2 diabetes mellitus with diabetic chronic kidney disease; E78.5 Hyperlipidemia, unspecified; E87.70 Fluid overload, unspecified; G47.10 Hypersomnia, unspecified; E86.0 Dehydration; I95.3 Hypotension of hemodialysis; Y83.8 Other surgical procedures as the cause of abnormal reaction of the patient, or of later complication, without mention of misadventure at the time of the procedure; Y92.9 Unspecified place or not applicable; K21.9 Gastro-esophageal reflux disease without esophagitis; L98.429 Non-pressure chronic ulcer of back with unspecified severity; E11.40 Type 2 diabetes mellitus with diabetic neuropathy, unspecified; N35.912 Unspecified bulbous urethral stricture, male; R13.12 Dysphagia, oropharyngeal phase; Z66 Do not resuscitate; Z74.01 Bed confinement status; Z79.899 Other long term (current) drug therapy; Z99.2 Dependence on renal dialysis; Z86.73 Personal history of transient ischemic attack (TIA), and cerebral infarction without residual deficits; Z86.011 Personal history of benign neoplasm of the brain; Z85.46 Personal history of malignant neoplasm of prostate; Y92.89 Other specified places as the place of occurrence of the external cause; Z83.3 Family history of diabetes mellitus; Z82.49 Family history of ischemic heart disease and other diseases of the circulatory system
CPT/HCPCS: 31500; 31600; 31720; 36415; 36430; 36600; 43246; 70450; 70553; 71045; 71250; 74018; 74176; 76700; 76705; 76770; 80048; 80053; 80061; 80305; 81001; 82040; 82140; 82270; 82435; 82550; 82565; 82570; 82728; 82803; 82947; 82948; 83036; 83540; 83550; 83605; 83735; 83874; 84100; 84132; 84145; 84295; 84300; 84484; 84520; 84550; 85014; 85018; 85025; 85027; 85610; 85730; 86140; 86701; 86704; 86706; 86850; 86900; 86901; 86922; 87040; 87070; 87071; 87076; 87077; 87088; 87186; 87205; 87340; 87390; 87520; 88307; 88341; 88342; 88360; 90935; 92507; 92522; 92610; 93005; 93306; 93356; 93971; 94002; 94003; 94640; 94660; 94664; 94667; 94668; 97039; 99291; A4344; A5061; A5063; A9579; C1713; C9113; G0378; J0171; J0610; J0690; J0885; J1100; J1170; J1450; J1644; J1953; J2001; J2020; J2185; J2248; J2250; J2370; J2405; J2704; J2710; J2765; J3010; J3370; J3411; J3490; J7030; J7040; J7050; J7070; J7120; P9016; P9046; Q9963